=== PATIENT | female | born 1955 | race Caucasian/White ===

== ENCOUNTER 2016-10-14 22:54 | Inpatient (IN) | payer BC, OTHER ==
[2016-10-14] MEDS ORDERED: NS 1000 ML 1,000 ML IV SCH (23:45)
--- NOTE | 2016-10-14 23:49 | DR.GENAD ---
HPI - PCP Primary Care Physician: GLORIA KIM - HPI Comment HPI Comment: PATIENT SAID HER CALL HER AT HOME AND TOLD HER TO COME TO ED. SHE HAS COPD ANDIS HAVING INCREASING SOB. SHE IS WEAK AND HAVE CHEST TIGHTNESS, COUGHING BUT NO FEVER. - Complaint/Symptoms Chief Complaint Doctors Comments: PATIENT HAVE ABNORMAL LABDS AND ABG DONE TODAY. HERE TO EVALUATE. Chief Complaint:: HAD LABS DONE TODAY, DOCTOR CALLED PATIENT AND TOLD THEM TO COME TO THE NEAREST ER. - Nurses notes reviewed Nurses Notes Review: Yes - Source History Provided: Patient, Significant Other - Mode of Arrival Mode of Arrival: Ambulatory - Timing Onset of Chief Complaint: 10/14/16 Came on: Suddenly - Duration Duration: Constant Duration: Days - Severity Severity: Moderate PMH - PMH Past Medical History: Yes Past Medical History: Arthritis, CHF, COPD, Coronary Artery Disease, Diabetes, GERD, Gout, Hypertension, [place] Past Surgical History: Yes Surgical History: Angioplasty/Stents, , Cholecystectomy, Hysterectomy - Family History History of Family Medical Conditions: Yes Family Medical History: Coronary Artery Disease, Heart Failure, Hypertension - Social History Type of Tobacco Use: None Alcohol Use: None Do you use any recreational Drugs:: No Lives With: Spouse Lives Where: Home - infectious screening Have you traveled outside the country in the last 6 months?: No Isolation: Standard ROS - Review of Systems Constitutional: Weakness, Fatigue, Loss of Appetite. negative: Chills, Fever Eyes: No Symptoms Reported. negative: Eye Pain, Discharge ENTM: Nose Congestion. negative: Ear Pain, Nose Discharge, Throat Pain Respiratoy: Productive Cough, Non-Productive Cough, Short of Breath, Wheezing Cardiovascular: Chest Pain, Edema. negative: Palpitations Gastrointestinal/Abdominal: Nausea. negative: Abdominal Pain, Constipation, Vomiting Genitourinary: Other (INCREASE URINE OUTPUT DUE TO LASIX.). negative: Dysuria, Frequency, Hematuria Neurological: Weakness, Dizziness. negative: Headache Musculoskeletal: Joint Pain, Muscle Pain Integumentary: Change in Color Hematologic/Lymphatic: Easy Bruising Endocrine: Increased Urine (DUE TO LASIX.) All Other Systems: Reviewed and Negative PE - Vital Signs Vitals: Temperature 97.6 F Pulse Rate 65 Respiratory Rate 16 Blood Pressure [Left Arm] 102/51 Blood Pressure [Right Arm] 99/47 Blood Pressure 142/66 - General Limitations: No Limitations General Appearance: Alert - Head Head Exam: Normal Inspection - Eyes Eye exam: Normal Appearance - ENT ENT Exam: Normal External Ear Exam External Ear Exam: Normal External Inspection TM/Canal Exam: Bilateral Normal Nose Exam: Normal Nose Exam Mouth Exam: Normal Inspection Throat Exam: Normal Inspection - Neck Neck Exam: Trachea Midline. negative: Tenderness, Meningismus, Lymphadenopathy - Chest Chest Inspection: Symmetric Chest Wall Rise - Respiratory Respiratory Exam: Normal Lung Sounds Bilat, Respiratory Distress Respiratory Exam: Bilateral Wheezing, Bilateral Rhonchi, Lower Wheezing, Lower Rhonchi - Cardiovascular Cardiovascular Exam: Regular Rate, Normal Rhythm, Normal Heart Sounds - Abdominal Exam Abdominal Exam: Normal Bowel Sounds, Soft. negative: Tenderness - Extremities Extremities Exam: Normal Inspection, Full ROM, Edema - Back Back Exam: Paraspinal Tenderness - Neurologic Neurological Exam: Alert, Oriented X3 - Psychiatric Psychiatric Exam: Normal Affect, Normal Mood - Skin Skin Exam: Erythema MDM - Additional Information Additional Information Obtained From: Family - Differential Diagnosis Differential Diagnosis: GENERALIZE WEAKNESS, HYPONATREMIA, HYPOKALEMIA, COPD EXACERBATION Course - Treatment Treatment: SEE ORDER, - Consultation Consultation Comments: DISCUSS PATIENT WITH DR. MARTINS. HE WILL ADMIT PATIENT. - Education/Counseling Education/Counseling: Patient, Family, Education Educated On: Diagnosis ROR - Labs Reviewed Laboratory Results Reviewed?: Yes Result Diagrams: 10/14/16 23:46 Laboratory: Sodium 125 mmol/L (136-145) L* 10/14/16 23:46 Corrected Sodium 126 mmol/L (136-145) L 10/14/16 23:46 Potassium 2.7 mmol/L (3.5-5.1) L* 10/14/16 23:46 Chloride 83 mmol/L (98-107) L 10/14/16 23:46 Carbon Dioxide 35.2 mmol/L (21-32) H 10/14/16 23:46 BUN 55 mg/dL (7-18) H 10/14/16 23:46 Creatinine 1.92 mg/dL (0.55-1.02) H 10/14/16 23:46 Est GFR (MDRD) Af Amer 34 (>60) L 10/14/16 23:46 Est GFR (MDRD) Non-Af 28 (>60) L 10/14/16 23:46 Glucose 130 mg/dL (65-99) H 10/14/16 23:46 Calcium 8.7 mg/dL (8.5-10.1) 10/14/16 23:46 Corrected Calcium TNP 10/14/16 23:46 Total Bilirubin 0.50 mg/dL (0.2-1.0) 10/14/16 23:46 AST 52 Units/L (15-37) H 10/14/16 23:46 ALT 30 Units/L (12-78) 10/14/16 23:46 Alkaline Phosphatase 90 Units/L (46-116) 10/14/16 23:46 Total Protein 7.9 g/dL (6.4-8.2) 10/14/16 23:46 Albumin 3.7 g/dL (3.4-5.0) 10/14/16 23:46 Globulin 4.2 g/dL (2.5-4.5) 10/14/16 23:46 Albumin/Globulin Ratio 0.9 Ratio (1.1-2.1) L 10/14/16 23:46 Specimen Type Clean catch urine 10/15/16 00:04 Urine Color Yellow (YELLOW) 10/15/16 00:04 Urine Appearance Clear (CLEAR) 10/15/16 00:04 Urine pH 7.0 (5.0 - 8.0) 10/15/16 00:04 Ur Specific [place] 1.010 (1.000-1.030) 10/15/16 00:04 Urine Protein Negative (NEGATIVE) 10/15/16 00:04 Urine Glucose (UA) Negative (NEGATIVE) 10/15/16 00:04 Urine Ketones Negative (NEGATIVE) 10/15/16 00:04 Urine Occult Blood Negative (NEGATIVE) 10/15/16 00:04 Urine Nitrite Negative (NEGATIVE) 10/15/16 00:04 Urine Bilirubin Negative (NEGATIVE) 10/15/16 00:04 Urine Urobilinogen Normal (NORMAL) 10/15/16 00:04 Ur Leukocyte Esterase Negative (NEGATIVE) 10/15/16 00:04 Urine RBC None seen /HPF (NEGATIVE) 10/15/16 00:04 Urine WBC None seen /HPF (NEGATIVE) 10/15/16 00:04 Ur Squamous Epith Cells Rare /HPF (NEGATIVE) 10/15/16 00:04 Urine Bacteria Negative /HPF (NEGATIVE) 10/15/16 00:04 Ur Culture Indicated? No/not indicated 10/15/16 00:04 - XRAY XRAY Interpreted by: Radiologist XRAY Findings: REPORT DISCUSS WITH PATIENT AND FAMILY. - EKG Rhythm: NSR (EKG NOTED.) - Diagnosis Discharge Problem: Hyponatremia, Hypokalemia, COPD with exacerbation - Discharge Plan Condition: Stable - Follow ups/Referrals - Instructions
[2016-10-14] MEDS ORDERED: NS 1000 ML 1,000 ML ONE (23:51)
[2016-10-15 00:02] LABS: BLOOD UREA NITROGEN 55 mg/dL (7-18); CALCIUM 8.7 mg/dL (8.5-10.1); CARBON DIOXIDE 35.2 mmol/L (21-32); CHLORIDE 83 mmol/L (98-107); COR NA(FOR HYPERGLY) 126 mmol/L (136-145); CREATININE 1.92 mg/dL (0.55-1.02); GLUCOSE 130 mg/dL (65-99); eGFR BLACK RACES 34 (>60); eGFR NON BLACK RACES 28 (>60)
[2016-10-15 00:06] LABS: ALANINE AMINOTRANSFERASE 30 Units/L (12-78); ALBUMIN 3.7 g/dL (3.4-5.0); ALKALINE PHOSPHATASE 90 Units/L (46-116); ASPARTATE AMINO TRANSFERASE 52 Units/L (15-37); TOTAL PROTEIN 7.9 g/dL (6.4-8.2)
[2016-10-15 00:07] LABS: SODIUM 125 mmol/L (136-145)
[2016-10-15 00:22] LABS: BILIRUBIN,URINE NEGATIVE (NEGATIVE); BLOOD/HEMOGLOBIN,URINE NEGATIVE (NEGATIVE); GLUCOSE, URINE NEGATIVE (NEGATIVE); KETONES,URINE NEGATIVE (NEGATIVE); LEUKOCYTE ESTERASE ,URINE NEGATIVE (NEGATIVE); NITRITES,URINE NEGATIVE (NEGATIVE); PROTEIN,URINE NEGATIVE (NEGATIVE); UROBILINOGEN,URINE NORMAL (NORMAL)
[2016-10-15 00:36] LABS: APPEARANCE,URINE CLEAR (CLEAR); BACTERIA,URINE NEGATIVE /HPF (NEGATIVE); COLOR,URINE YELLOW (YELLOW); RBC,URINE NONE SEEN /HPF (NEGATIVE); SQUAMOUS EPITHELIAL CELL,UR RARE /HPF (NEGATIVE)
[2016-10-15] MEDS ORDERED: POTASSIUM CHLORIDE LIQ 20 MEQ UDC PO ONE (01:16)
[2016-10-15] MEDS ORDERED: POTASSIUM CHLORIDE LIQ 20 MEQ UDC ONE (01:22)
[2016-10-15 01:24] LABS: B-TYPE NATRIURETIC PEPTIDE 66.7 pg/mL (0-79)
--- NOTE | 2016-10-15 01:40 | RAD ---
Chest, one view Indication: Chest pain. Comparison: 10/16/2014 Findings: Mild cardiac silhouette enlargement is unchanged. There is mild pulmonary vascular congest ion, without evidence for overt edema. No dense infiltrates or large effusion identified. There is s table positioning of the left subclavian Port-A-Cath. Impression: Mild cardiomegaly without acute chest process. Reported By:
[2016-10-15 01:41] LABS: CKMB % 2.1 % (<4); CREATINE KINASE 657 Units/L (26-192); TROPONIN I < 0.02 ng/mL (0-1.5)
[2016-10-15 01:43] LABS: CREATINE KINASE MB 13.9 ng/mL (0-4.0)
[2016-10-15] MEDS ORDERED: NS + KCL 40 MEQ/L 1,000 ML IV SCH (02:00)
[2016-10-15 04:23] VITALS: BMI 43.7
[2016-10-15] MEDS: DUONEB 0.5 MG/3 MG NEB SCH ×3 (04:27→13:28)
[2016-10-15] MEDS ORDERED: LEVAQUIN PREMIX IV 500 MG 500 MG/100 ML BAG IV ONE (06:00)
[2016-10-15 06:55] LABS: ALANINE AMINOTRANSFERASE 29 Units/L (12-78); ALBUMIN 3.5 g/dL (3.4-5.0); ALKALINE PHOSPHATASE 82 Units/L (46-116); ASPARTATE AMINO TRANSFERASE 47 Units/L (15-37); BASOPHILS % (AUTO) 0.6 % (0.2-1.0); BLOOD UREA NITROGEN 57 mg/dL (7-18); CALCIUM 8.5 mg/dL (8.5-10.1); CARBON DIOXIDE 34.5 mmol/L (21-32); CHLORIDE 85 mmol/L (98-107); COR NA(FOR HYPERGLY) 127 mmol/L (136-145); CREATININE 2.03 mg/dL (0.55-1.02); EOSINOPHILS # (AUTO) 0.1 x10^3/uL (0.0-0.2); EOSINOPHILS % (AUTO) 2.7 % (0.9-2.9); GLUCOSE 139 mg/dL (65-99); HEMATOCRIT 29.5 % (36.0-47.0); HEMOGLOBIN 10.2 g/dL (12.0-16.0); LYMPHOCYTES # (AUTO) 1.2 X10^3/uL (1.3-2.9); LYMPHOCYTES % (AUTO) 21.7 % (21.0-51.0); MAGNESIUM 1.9 mg/dL (1.7-2.9); MEAN CORPUSCULAR HEMOGLOBIN 31.7 pg (27.0-34.0); MEAN CORPUSCULAR HGB CONC 34.5 g/dL (33.0-35.0); MEAN CORPUSCULAR VOLUME 91.9 fL (80.0-100.0); MEAN PLATELET VOLUME 7.1 fL (7.4-11.0); MONOCYTES # (AUTO) 0.6 x10^3/uL (0.3-0.8); MONOCYTES % (AUTO) 11.2 % (0.0-13.0); NEUTROPHILS # (AUTO) 3.4 x10^3/uL (2.2-4.8); NEUTROPHILS % (AUTO) 63.8 % (42.0-75.0); PLATELET COUNT 146 X10^3/uL (150.0-450.0); RED BLOOD COUNT 3.21 X10^6/uL (3.5-5.4); RED CELL DISTRIBUTION WIDTH 15.6 % (11.6-16.5); SODIUM 126 mmol/L (136-145); TOTAL PROTEIN 7.4 g/dL (6.4-8.2); WHITE BLOOD COUNT 5.4 X10^3/uL (3.6-10.0); eGFR BLACK RACES 32 (>60); eGFR NON BLACK RACES 27 (>60)
[2016-10-15 07:26] LABS: CKMB % 2.1 % (<4); TROPONIN I 0.02 ng/mL (0-1.5)
[2016-10-15 07:36] LABS: CREATINE KINASE MB 9.5 ng/mL (0-4.0)
[2016-10-15] MEDS ORDERED: ESTRACE PO SCH (10:00)
[2016-10-15] MEDS ORDERED: CYMBALTA PO SCH (10:00)
[2016-10-15] MEDS ORDERED: LASIX PO SCH (10:00)
[2016-10-15] MEDS ORDERED: [UNRECOGNIZED DRUG - OTHER] PO SCH (10:00)
[2016-10-15] MEDS ORDERED: [UNRECOGNIZED DRUG - OTHER] PO SCH (10:00)
[2016-10-15] MEDS ORDERED: [UNRECOGNIZED DRUG - OTHER] PO SCH (10:00)
[2016-10-15] MEDS ORDERED: NEURONTIN TAB 600 MG PO SCH (10:00)
[2016-10-15] MEDS ORDERED: ZYLOPRIM PO SCH (10:00)
[2016-10-15] MEDS ORDERED: ABILIFY PO SCH (10:00)
[2016-10-15] MEDS ORDERED: MAG-OX TAB PO SCH (10:00)
[2016-10-15] MEDS ORDERED: ZANTAC PO SCH (10:00)
[2016-10-15] MEDS ORDERED: IMDUR PO SCH (10:00)
[2016-10-15] MEDS ORDERED: PLAVIX PO SCH (10:00)
[2016-10-15] MEDS: REQUIP PO SCH ×2 (10:32→12:59)
[2016-10-15] MEDS: NORCO 10/325 TAB PO SCH ×3 (10:33→12:58)
[2016-10-15] MEDS ORDERED: VASOTEC TAB 5 MG PO SCH (11:00)
[2016-10-15] MEDS ORDERED: TOPAMAX TAB 100 MG PO SCH (11:00)
[2016-10-15 12:50] LABS: CREATINE KINASE 499 Units/L (26-192); TROPONIN I < 0.02 ng/mL (0-1.5)
[2016-10-15 13:03] LABS: CREATINE KINASE MB 10.1 ng/mL (0-4.0)
[2016-10-15 15:06] VITALS: BP 90/74
[2016-10-15] MEDS ORDERED: SNACK - Diabetic Appropriate PO SCH (20:00)
[2016-10-15] MEDS ORDERED: [UNRECOGNIZED DRUG - OTHER] PO SCH (21:00)
[2016-10-15] MEDS ORDERED: ZOCOR TAB 20 MG PO SCH (21:00)
[2016-10-15] MEDS ORDERED: ZETIA TAB 10 MG PO SCH (21:00)
[2016-10-15] MEDS ORDERED: RESTORIL CAP 30 MG PO SCH (21:00)
[2016-10-15] MEDS ORDERED: TOPROL XL PO SCH (21:00)
[2016-10-15] MEDS ORDERED: MICRO K EXTEN CAP 10 MEQ PO SCH (21:00)
[2016-10-15] MEDS ORDERED: M.S. CONTIN 30 MG EXTENDED RELEASE PO SCH (21:00)
[2016-10-15] MEDS ORDERED: LEVEMIR SC SCH (21:00)
[2016-10-16] MEDS ORDERED: LEVAQUIN PREMIX IV 250 MG 250 MG/50 ML BAG IV SCH (09:00)
--- NOTE | 2016-10-16 13:29 | DR.CARTERS ---
Short Stay Summary - Short Stay Summary for: Short Stay Summary for Date of:: 10/15/16 - Admission Date Date of Admission: 10/14/16 - Discharge Date Discharge Date: 10/15/16 - Admission Diagnoses (1) COPD with exacerbation Status: Acute (2) Hypokalemia Status: Acute (3) Hyponatremia Status: Acute (4) CHF (congestive heart failure) Status: Chronic (5) CKD (chronic kidney disease) Status: Chronic (6) Coronary arteriosclerosis Status: Chronic (7) Diabetes mellitus, type II Status: Chronic (8) GERD (gastroesophageal reflux disease) Status: Chronic (9) Hyperlipidemia Status: Chronic - Hospital Course Hospital Course: patient is a 61-year-old white female who was admitted from the emergency room PATIENT SAID HER DR. CALL HER AT HOME AND TOLD HER TO COME TO ED. PATIENT HAVE ABNORMAL LABS AND ABG DONE TODAY. HERE TO EVALUATE. SHE HAS COPD AND IS HAVING INCREASING SOB. SHE IS WEAK AND HAVE CHEST TIGHTNESS , COUGHING BUT NO FEVER. patient has a past medical history of COPD and end- stage renal disease. Patient is followed by Dr. Holtephrologist. Patient presented to the ER as instructed by her primary care provider for IV hydration and treatment for electrolyte imbalance. Patient's potassium on admission was 2.7. After treatment and hydration patient's potassium stabilized at 3.6. Patient did have increased shortness of breath, history of COPD. Patient's chest x-ray was stable without acute findings. Patient was treated with respiratory therapy and condition significantly improved the following a.m. Patient states she has a area sales manager that she will see on Wednesday as well as her drywall hanger helper she is to follow-up with all Wednesday. Patient requests to go home patient's renal function continues to be elevated but within baseline. Patient was instructed to hold her Lasix per drywall hanger helper which she has failed to do. Patient instructed to hold Lasix until she follows up with Dr. Mcneil in addition on Wednesday. Patient's condition was improved overall and she denied any chest pain since admission. Patient's respiratory status was stable and she requested to go home. Patient allowed to discharge home to resume home meds other than Lasix and increased breathing treatments to 4 times a day. Patient and family both instructed to return to emergency room if condition changed or worsened unexpectedly patient and family verbalized understanding and discharged home per private vehicle. Patient's condition was stable and improved on discharge P - Discharge Medications Discharge Medications: Albuterol Neb 2.5MG/ 3Ml [ALBUTEROL NEB 2.5MG/ 3ML *] 1 nebule INH Q4H PRN #90 nebule 10/15/16 [Rx] Ropinirole HCl [REQUIP 0.25 MG *] 0.25 mg PO TID 10/15/16 [History] - Discharge Plan Disposition: 01 HOME, SELF-CARE Condition: Stable Prescriptions: Albuterol Neb 2.5MG/ 3Ml [ALBUTEROL NEB 2.5MG/ 3ML *] 1 nebule INH Q4H PRN #90 nebule PRN Reason: Wheezing - Follow up/Referrals Follow up/Referrals: SAIRA KIM [Nurse Practitioner] - 1 WEEK JEANNIE SALAZAR [REFERRING] - 10/20/16 (As scheduled) - Instructions Instructions: Type 2 Diabetes Mellitus, Adult, Muscle Cramps and Spasms, Easy- to-Read, Shortness of Breath, [id number], Hyponatremia, [id number]-Mlxo, Hypokalemia, Albuterol inhalation aerosol, Chronic Obstructive Pulmonary Disease , Vgpj-bj-Imtg, Sodium (Na) Test, Dehydration, Adult, Wzpo-zo-Uysf, Heart Failure, Vbjt-im-[id number], Chest Pain Observation Additional Instructions: f/u with pcp in one week see dr salazar on wednesday as scheduled pt to continue hold lasix rx albuterol sent to pharmacy Forms: Patient Portal
== END 2016-10-15 16:15 | disposition home or self-care (01) | DRG 190 ==
LOC: ER 22:54 → ICU 10-15 03:21
PROVIDERS: ADMIT Internal Medicine; ATTEND Internal Medicine
DX: J44.1 Chronic obstructive pulmonary disease with (acute) exacerbation (principal); E87.1 Hypo-osmolality and hyponatremia; E87.6 Hypokalemia; R06.02 Shortness of breath; I25.10 Atherosclerotic heart disease of native coronary artery without angina pectoris; K21.9 Gastro-esophageal reflux disease without esophagitis; I12.0 Hypertensive chronic kidney disease with stage 5 chronic kidney disease or end stage renal disease; N18.6 End stage renal disease; M13.89 Other specified arthritis, multiple sites; R07.89 Other chest pain; I50.9 Heart failure, unspecified; E11.65 Type 2 diabetes mellitus with hyperglycemia; E78.2 Mixed hyperlipidemia; R26.89 Other abnormalities of gait and mobility
CPT/HCPCS: 36415; 36591; 51702; 71010; 80053; 81001; 82550; 82553; 83735; 83880; 84132; 84484; 85025; 85610; 85730; 93005; 93010; 94640; 96365; 96367; 99284; 99285; A4216; A4222; J1956; J7620

== ENCOUNTER → 2016-10-14 | Outpatient (CLI) | payer BC, OTHER ==
[2015-12-01 21:05] VITALS: BP 102/51
[2016-10-14 15:07] LABS: ALANINE AMINOTRANSFERASE 31 Units/L (12-78); ALBUMIN 3.8 g/dL (3.4-5.0); ALKALINE PHOSPHATASE 90 Units/L (46-116); ASPARTATE AMINO TRANSFERASE 51 Units/L (15-37); BILIRUBIN,DIRECT 0.17 mg/dL (0-0.2); BLOOD UREA NITROGEN 57 mg/dL (7-18); CARBON DIOXIDE 37.4 mmol/L (21-32); CHLORIDE 81 mmol/L (98-107); CREATININE 2.01 mg/dL (0.55-1.02); GLUCOSE 78 mg/dL (65-99); eGFR BLACK RACES 33 (>60); eGFR NON BLACK RACES 27 (>60)
[2016-10-14 15:08] LABS: BILIRUBIN,URINE NEGATIVE (NEGATIVE); BLOOD/HEMOGLOBIN,URINE NEGATIVE (NEGATIVE); GLUCOSE, URINE NEGATIVE (NEGATIVE); KETONES,URINE NEGATIVE (NEGATIVE); LEUKOCYTE ESTERASE ,URINE NEGATIVE (NEGATIVE); NITRITES,URINE NEGATIVE (NEGATIVE); PROTEIN,URINE NEGATIVE (NEGATIVE); UROBILINOGEN,URINE NORMAL (NORMAL)
[2016-10-14 15:13] LABS: SODIUM 123 mmol/L (136-145)
[2016-10-14 15:26] LABS: APPEARANCE,URINE CLEAR (CLEAR); COLOR,URINE YELLOW (YELLOW)
[2016-10-14 15:31] LABS: RBC,URINE NEGATIVE /HPF (NEGATIVE); SQUAMOUS EPITHELIAL CELL,UR MODERATE /HPF (NEGATIVE)
[2016-10-14 15:32] LABS: BACTERIA,URINE NEGATIVE /HPF (NEGATIVE)
[2016-10-14 16:51] LABS: ABG BASE EXCESS 16.2 mmol/L (-2.0-2.0)
[2016-10-14 17:03] LABS: ABG HCO3 42.4 mmol/L (22-26)
== END ==
LOC: LAB 14:19
PROVIDERS: ATTEND Internal Medicine
DX: R41.82 Altered mental status, unspecified (principal)
CPT/HCPCS: 36415; 36600; 80069; 80076; 81001; 82140; 82803

== ENCOUNTER → 2016-10-19 | Outpatient (CLI) | payer BC, OTHER ==
[2016-10-15 15:06] VITALS: BP 90/74
[2016-10-19 17:23] LABS: ALBUMIN 3.6 g/dL (3.4-5.0); BLOOD UREA NITROGEN 56 mg/dL (7-18); CALCIUM 8.5 mg/dL (8.5-10.1); CARBON DIOXIDE 29.2 mmol/L (21-32); CHLORIDE 90 mmol/L (98-107); COR NA(FOR HYPERGLY) 131 mmol/L (136-145); GLUCOSE 153 mg/dL (65-99); PHOSPHORUS 4.6 mg/dL (2.6-4.7); SODIUM 130 mmol/L (136-145); eGFR BLACK RACES 29 (>60); eGFR NON BLACK RACES 24 (>60)
== END ==
LOC: LAB 16:28
PROVIDERS: ATTEND Internal Medicine
DX: E87.6 Hypokalemia (principal); E87.1 Hypo-osmolality and hyponatremia
CPT/HCPCS: 36415; 80069

== ENCOUNTER → 2016-11-03 | Outpatient (CLI) | payer SELFPAY ==
[2016-10-15 15:06] VITALS: BP 90/74
[2016-11-03 17:15] LABS: BLOOD UREA NITROGEN 51 mg/dL (7-18); CALCIUM 8.8 mg/dL (8.5-10.1); CARBON DIOXIDE 31.8 mmol/L (21-32); CHLORIDE 81 mmol/L (98-107); COR NA(FOR HYPERGLY) 122 mmol/L (136-145); CREATININE 1.57 mg/dL (0.55-1.02); GLUCOSE 157 mg/dL (65-99); eGFR BLACK RACES 43 (>60); eGFR NON BLACK RACES 36 (>60)
[2016-11-03 17:19] LABS: ALBUMIN 3.8 g/dL (3.4-5.0); PHOSPHORUS 3.5 mg/dL (2.6-4.7)
[2016-11-03 17:31] LABS: SODIUM 121 mmol/L (136-145)
== END | disposition home or self-care (01) | DRG 641 ==
LOC: LAB 16:45
PROVIDERS: ATTEND Internal Medicine
DX: E87.1 Hypo-osmolality and hyponatremia (principal); E87.6 Hypokalemia; N18.4 Chronic kidney disease, stage 4 (severe)
CPT/HCPCS: 36415; 80069

== ENCOUNTER → 2016-11-09 | Outpatient (CLI) | payer BC, OTHER ==
[2016-10-15 15:06] VITALS: BP 90/74
[2016-11-09 17:37] LABS: BASOPHILS # (AUTO) 0.1 X10^3/uL (0.0-0.1); BASOPHILS % (AUTO) 1.9 % (0.2-1.0); EOSINOPHILS # (AUTO) 0.1 x10^3/uL (0.0-0.2); EOSINOPHILS % (AUTO) 2.3 % (0.9-2.9); HEMOGLOBIN 11.6 g/dL (12.0-16.0); LYMPHOCYTES # (AUTO) 1.5 X10^3/uL (1.3-2.9); LYMPHOCYTES % (AUTO) 26.1 % (21.0-51.0); MEAN CORPUSCULAR HEMOGLOBIN 31.2 pg (27.0-34.0); MEAN CORPUSCULAR VOLUME 91.6 fL (80.0-100.0); MEAN PLATELET VOLUME 6.9 fL (7.4-11.0); MONOCYTES # (AUTO) 0.7 x10^3/uL (0.3-0.8); MONOCYTES % (AUTO) 12.5 % (0.0-13.0); NEUTROPHILS # (AUTO) 3.3 x10^3/uL (2.2-4.8); NEUTROPHILS % (AUTO) 57.2 % (42.0-75.0); PLATELET COUNT 177 X10^3/uL (150.0-450.0); RED BLOOD COUNT 3.71 X10^6/uL (3.5-5.4); RED CELL DISTRIBUTION WIDTH 15.8 % (11.6-16.5); WHITE BLOOD COUNT 5.8 X10^3/uL (3.6-10.0)
[2016-11-09 17:51] LABS: ALBUMIN 3.7 g/dL (3.4-5.0); BLOOD UREA NITROGEN 45 mg/dL (7-18); CALCIUM 9.2 mg/dL (8.5-10.1); CARBON DIOXIDE 33.2 mmol/L (21-32); CHLORIDE 88 mmol/L (98-107); CREATININE 1.54 mg/dL (0.55-1.02); GLUCOSE 110 mg/dL (65-99); SODIUM 129 mmol/L (136-145); eGFR BLACK RACES 44 (>60); eGFR NON BLACK RACES 37 (>60)
== END | disposition home or self-care (01) | DRG 683 ==
LOC: LAB 17:13
PROVIDERS: ATTEND Internal Medicine
DX: N17.8 Other acute kidney failure (principal); E87.1 Hypo-osmolality and hyponatremia; N18.3 Chronic kidney disease, stage 3 (moderate)
CPT/HCPCS: 36415; 80069; 85025

== ENCOUNTER → 2016-12-08 | Outpatient (CLI) | payer BC, OTHER ==
--- NOTE | 2016-12-08 11:40 | RAD ---
HISTORY: Shortness of breath. Study: PA and lateral chest. Comparison: Chest x-ray dated October 15, 2016. Findings: The trachea is midline. The cardiac silhouette is mildly enlarged but unchanged. Stable appearance of a left chest Port-A-Cath and a thoracic nerve stimulator. No obvious focal consolidation, pleura l effusion, or pneumothorax. The bony thorax appears unchanged. IMPRESSION: 1. No acute cardiopulmonary disease. Reported By:
--- NOTE | 2016-12-08 12:23 | RAD ---
HISTORY: Pain Study: Three views right shoulder Comparison: None Findings: There is moderate AC joint and mild glenohumeral joint DJD. No destructive osseous lesions are seen . No acute cortical disruption or dislocation can be identified. The visualized portions of the sc apula are unremarkable. A left-sided Port-A-Cath and spinal stimulation device are noted. IMPRESSION: Mild to moderate DJD without acute bony radiographic abnormality. Reported By:
== END ==
LOC: RAD 10:47
PROVIDERS: ATTEND Nurse Practitioner Family
DX: Z00.00 Encounter for general adult medical examination without abnormal findings (principal); Z12.31 Encounter for screening mammogram for malignant neoplasm of breast; M25.511 Pain in right shoulder; R06.02 Shortness of breath
CPT/HCPCS: 71020; 73030; 77067

== ENCOUNTER → 2017-01-05 | Outpatient (CLI) | payer BC, OTHER ==
--- NOTE | 2017-01-05 17:59 | RAD ---
HISTORY: Thoracic and low back pain. Study: Multiple views of the thoracic and lumbar spine. Comparison: Thoracic spine series dated April 15, 2012. Findings: 12 rib-bearing thoracic vertebra and 4 lwm-hjl-egeekgb lumbar vertebra. Sacralization of the L5 vert ebral body. No acute fracture or listhesis. Multilevel facet arthrosis and small anterior disc osteo phyte complexes. The vertebral body heights and disc spaces are otherwise maintained. Stable appeara nce of a left chest Port-A-Cath. Interval replacement of a thoracic nerve stimulator that appears in tact. The visualized cardiac silhouette and lungs appear unchanged. Nonobstructive bowel gas pattern . Vascular calcifications are seen. The SI joints appear normal. IMPRESSION: Chronic findings as above. Reported By:
--- NOTE | 2017-01-05 17:59 | RAD ---
HISTORY: Thoracic and low back pain. Study: Multiple views of the thoracic and lumbar spine. Comparison: Thoracic spine series dated April 15, 2012. Findings: 12 rib-bearing thoracic vertebra and 4 wjb-ych-wbiugwm lumbar vertebra. Sacralization of the L5 vert ebral body. No acute fracture or listhesis. Multilevel facet arthrosis and small anterior disc osteo phyte complexes. The vertebral body heights and disc spaces are otherwise maintained. Stable appeara nce of a left chest Port-A-Cath. Interval replacement of a thoracic nerve stimulator that appears in tact. The visualized cardiac silhouette and lungs appear unchanged. Nonobstructive bowel gas pattern . Vascular calcifications are seen. The SI joints appear normal. IMPRESSION: Chronic findings as above. Reported By:
--- NOTE | 2017-01-05 18:03 | RAD ---
HISTORY: Bilateral hip pain. Study: Three views of the bilateral hips. Comparison: None. Findings: Mild osteoarthritis of the bilateral hips with associated subchondral cystic changes within the acet abulum. 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 No acute cortical disruption or disl ocation can be identified. No significant soft tissue swelling or injury can be seen. IMPRESSION: Chronic findings as above. Reported By:
--- NOTE | 2017-01-05 18:58 | RAD ---
HISTORY: Pain Study: C-spine series Comparison: 11/04/2011 Findings: The C7 and T1 vertebra are partially obscured on the lateral view. There is moderate disc space narr owing throughout the visualized lower cervical spine with prominent osteophytes inferiorly which are unchanged. No obvious fracture or subluxation is seen in the visualized vertebra. The prevertebral soft tissues are normal. The atlantoaxial joint is normal. Impression: Partial obscuration of the C7 and T1 vertebra on the lateral view due to overlying artifact . Recomm end clinical followup of the area and obtaining a swimmer's view or CT scan, if indicated to further evaluate the area . Moderately severe degenerative disk changes throughout the lower cervical spine which is unchanged w ith no obvious acute abnormality seen in the visualized cervical vertebra. Reported By:
== END ==
LOC: RAD 16:33
PROVIDERS: ATTEND Nurse Practitioner Family
DX: M54.2 Cervicalgia (principal); M54.6 Pain in thoracic spine; M25.511 Pain in right shoulder; M25.512 Pain in left shoulder; M25.551 Pain in right hip; M25.552 Pain in left hip
CPT/HCPCS: 72040; 72072; 72100; 73030; 73521

== ENCOUNTER → 2017-01-07 | Outpatient (CLI) | payer BC, OTHER ==
--- NOTE | 2017-01-07 17:03 | CT ---
CT head without contrast Indication: Left-sided weakness Technique: Helical CT images of the head were obtained without contrast. Reformatted images in the c oronal and sagittal planes were also generated for review. 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 Mild generalized brain pa renchymal atrophy and mild periventricular white matter microangiopathic disease also appear similar . Kinney-white differentiation otherwise appears maintained. There is no visible acute infarction, int racranial hemorrhage, extra-axial collection, edema or mass effect. The paranasal sinuses and mastoi d air cells appear clear. No acute osseous or soft tissue abnormality seen. Impression: No acute intracranial abnormality. Stable chronic findings as above. Reported By:
--- NOTE | 2017-01-07 18:05 | CT ---
HISTORY: Neck pain. Study: CT cervical spine without contrast Comparison: Cervical spine series dated January 05, 2017. Technique: Multiple axial images of the cervical spine were obtained from the skull base to the thor acic inlet without administration of IV contrast. Sagittal and coronal reformats were performed and reviewed. Dose reduction techniques including Automated Exposure Control (AEC) and adjustment of mA and kV were utilized. Findings: Reversal of the normal cervical lordosis, which may represent positioning versus muscle spasm. No ac [place] fracture or listhesis. Mild/moderate disc space narrowing with associated early endplate scleros is and large anterior disc osteophyte complexes at C4 through C7. No significant spinal canal stenos is or neural foraminal narrowing. Left chest Port-A-Cath. The prevertebral soft tissues are unremark able. Moderate fibrosis of the lung apices. IMPRESSION: Chronic findings as above. Reported By:
== END ==
LOC: RAD 15:09
PROVIDERS: ATTEND Nurse Practitioner Family
DX: Z45.2 Encounter for adjustment and management of vascular access device (principal); Z95.828 Presence of other vascular implants and grafts; R51 Headache; M54.2 Cervicalgia
CPT/HCPCS: 70450; 72125; 99281

== ENCOUNTER 2017-01-24 20:51 | Emergency (ER) | payer BC, OTHER ==
[2017-01-24 21:03] VITALS: BP 152/69; BMI 44.9
--- NOTE | 2017-01-24 21:27 | DR.GENAD ---
HPI - PCP Primary Care Physician: Lawrence - Complaint/Symptoms Chief Complaint Doctors Comments: Spouse reports that patient fell onto her back one week ago, workup negative for fracture. Sustained contusion of left upper back. Today fell againe the wall and slide to to floor. Chief Complaint:: "I fell yesterday on my back and hit my head. Today I felt something running so I put a q-tip on it and there was blood. I have been dizzy this past week before this happened." - Source History Provided: Patient - Mode of Arrival Mode of Arrival: Ambulatory - Timing Onset of Chief Complaint: 01/23/17 PMH - PMH Past Medical History: Yes Past Medical History: Arthritis, CHF, COPD, Coronary Artery Disease, Diabetes, GERD, Gout, Hypertension, [place] Past Surgical History: Yes Surgical History: , CABG/Valve Surgery, Cholecystectomy, Hysterectomy - Family History History of Family Medical Conditions: Yes Family Medical History: Heart Failure - Social History Does patient currently use any type of tobacco product: No Have you used tobacco products in the last 12 months: No Type of Tobacco Use: None Does any household member use tobacco: No Alcohol Use: None Do you use any recreational Drugs:: No Lives With: Alone - infectious screening In the last 2 months have you had wt loss of >10#?: YES Have you had fever, night sweats or hemotysis?: No Have you traveled outside the country in the last 6 months?: No Isolation: Standard ROS - Review of Systems Eyes: No Symptoms Reported ENTM: No Symptoms Reported, Ear Discharge (blood proximal 1/2 of external canal left ear; right ear blood proximal 1/3 external canat) Respiratoy: No Symptoms Reported Cardiovascular: No Symptoms Reported Genitourinary: No Symptoms Reported Neurological: No Symptoms Reported Musculoskeletal: No Symptoms Reported Hematologic/Lymphatic: Other (old ecchymosis of left back anterior, ) Endocrine: No Symptoms Reported Psychiatric: No Symptoms Reported All Other Systems: Reviewed and Negative PE - Vital Signs Vitals: Temperature 97.9 F Pulse Rate 77 Respiratory Rate 18 Blood Pressure [Left Arm] 90/74 Blood Pressure [Right Arm] 107/56 Blood Pressure 152/69 O2 Sat by Pulse Oximetry 90 - General General Appearance: Alert, In No Apparent Distress - Head Head Exam: Normal Inspection, Atraumatic - Eyes Eye exam: Normal Appearance, PERRL, EOMI - ENT ENT Exam: Normal Exam External Ear Exam: Normal External Inspection TM/Canal Exam: Bilateral Normal Nose Exam: Normal Nose Exam Mouth Exam: Normal Inspection Throat Exam: Normal Inspection - Neck Neck Exam: Normal Inspection, Full ROM - Chest Chest Inspection: Normal Inspection - Respiratory Respiratory Exam: Normal Lung Sounds Bilat Respiratory Exam: Bilateral Clear to Auscultation - Cardiovascular Cardiovascular Exam: Regular Rate - Abdominal Exam Abdominal Exam: Normal Inspection Abdominal Tenderness: negative: RUQ, RLQ, LUQ, LLQ, Epigastrium, Suprapubic, Diffuse, Mild, Moderate, Severe, Other - Extremities Extremities Exam: Normal Inspection, Full ROM - Back Back Exam: Other (ecchymosis back left posterior lateral ) - Neurologic Neurological Exam: Alert, Oriented X3, CN II-XII Intact - Psychiatric Psychiatric Exam: Normal Affect, Normal Mood - Skin Skin Exam: Warm, Dry, Intact - Diagnosis Discharge Problem: Fall as cause of accidental injury at home as place of occurrence Qualifiers: Encounter type: initial encounter Qualified Code(s): W19.XXXA - Unspecified fall, initial encounter; Y92.009 - Unspecified place in unspecified non- institutional (private) residence as the place of occurrence of the external cause Trauma of ear canal Qualifiers: Encounter type: initial encounter Qualified Code(s): S09.91XA - Unspecified injury of ear, initial encounter - Discharge Plan Condition: Stable - Follow ups/Referrals Follow ups/Referrals: ALEX VICTORIA [Primary Care Provider] - 3 days - Instructions
== END 2017-01-24 21:41 | disposition home or self-care (01) ==
LOC: ER 20:51
DX: S09.91XA Unspecified injury of ear, initial encounter (principal); W19.XXXA Unspecified fall, initial encounter; Y92.009 Unspecified place in unspecified non-institutional (private) residence as the place of occurrence of the external cause
CPT/HCPCS: 99281; 99282

== ENCOUNTER 2017-03-24 13:14 | Emergency (ER) | payer BC, OTHER ==
[2017-03-24 13:19] VITALS: BP 153/63; BMI 45.1
[2017-03-24] MEDS ORDERED: NITROSTAT SL PRN (13:28)
--- NOTE | 2017-03-24 13:43 | DR.GENAD ---
HPI - PCP Primary Care Physician: darrell su - Complaint/Symptoms Chief Complaint Doctors Comments: Patient presents with chest pain radiating to left upper extrdmity. She states that the pain started this morning; but has not gotten better. She has a history of cardiac disease with stents ~10 years ago, she is followed by float builder Dr Marin in [place]. Patient has nigroglycerin spray but forgot to use it. Chief Complaint:: patient stated she has been having indigestion all day and has been short of breath all day and when she got on her scales she gained 2 in 24 hours. - Source History Provided: Patient - Mode of Arrival Mode of Arrival: Ambulatory - Timing Onset of Chief Complaint: 03/24/17 PMH - PMH Past Medical History: Yes Past Medical History: Arthritis, CHF, COPD, Coronary Artery Disease, Diabetes, GERD, Gout, Hypertension, [place] Past Surgical History: Yes Surgical History: , CABG/Valve Surgery, Cholecystectomy, Hysterectomy - Family History History of Family Medical Conditions: Yes Family Medical History: Heart Failure - Social History Does patient currently use any type of tobacco product: No Have you used tobacco products in the last 12 months: No Type of Tobacco Use: None Does any household member use tobacco: No Alcohol Use: None Do you use any recreational Drugs:: No Lives With: Family - infectious screening In the last 2 months have you had wt loss of >10#?: NO Have you had fever, night sweats or hemotysis?: No Have you traveled outside the country in the last 6 months?: No Isolation: Standard ROS - Review of Systems Constitutional: Diaphoresis Eyes: No Symptoms Reported, See HPI ENTM: No Symptoms Reported Respiratoy: No Symptoms Reported Cardiovascular: No Symptoms Reported Gastrointestinal/Abdominal: No Symptoms Reported Genitourinary: No Symptoms Reported Neurological: No Symptoms Reported Musculoskeletal: No Symptoms Reported Integumentary: No Symptoms Reported Hematologic/Lymphatic: No Symptoms Reported Endocrine: No Symptoms Reported, Increased Hunger All Other Systems: Reviewed and Negative PE - Vital Signs Vitals: Pulse Rate 75 Respiratory Rate 16 Blood Pressure [Left Arm] 90/74 Blood Pressure [Right Arm] 107/56 Blood Pressure 153/63 O2 Sat by Pulse Oximetry 98 - General Limitations: No Limitations General Appearance: Alert, In No Apparent Distress - Head Head Exam: Normal Inspection, Atraumatic - Eyes Eye exam: Normal Appearance, PERRL, EOMI - ENT ENT Exam: Normal Exam External Ear Exam: Normal External Inspection TM/Canal Exam: Bilateral Normal Nose Exam: Normal Nose Exam Mouth Exam: Normal Inspection Throat Exam: Normal Inspection - Neck Neck Exam: Normal Inspection, Full ROM - Chest Chest Inspection: Normal Inspection, Symmetric Chest Wall Rise - Respiratory Respiratory Exam: Normal Lung Sounds Bilat Respiratory Exam: Bilateral Clear to Auscultation - Cardiovascular Cardiovascular Exam: Regular Rate, Normal Rhythm - Abdominal Exam Abdominal Exam: Normal Inspection, Normal Bowel Sounds Abdominal Tenderness: negative: RUQ, RLQ, LUQ, LLQ, Epigastrium, Suprapubic, Diffuse, Mild, Moderate, Severe, Other - Extremities Extremities Exam: Normal Inspection - Back Back Exam: Normal Inspection, Full ROM - Neurologic Neurological Exam: Alert, Oriented X3, CN II-XII Intact - Psychiatric Psychiatric Exam: Normal Affect, Normal Mood, Depressed, Agitated - Skin Skin Exam: Warm, Dry, Intact Course - Reevaluation 1st: Improved ROR - Labs Reviewed Result Diagrams: 03/24/17 13:38 03/24/17 13:38 Laboratory: WBC 5.9 X10^3/uL (3.6-10.0) 03/24/17 13:38 RBC 3.29 X10^6/uL (3.5-5.4) L 03/24/17 13:38 Hgb 10.7 g/dL (12.0-16.0) L 03/24/17 13:38 Hct 31.2 % (36.0-47.0) L 03/24/17 13:38 MCV 94.6 fL (80.0-100.0) 03/24/17 13:38 MCH 32.5 pg (27.0-34.0) 03/24/17 13:38 MCHC 34.4 g/dL (33.0-35.0) 03/24/17 13:38 RDW 15.9 % (11.6-16.5) 03/24/17 13:38 Plt Count 140 X10^3/uL (150.0-450.0) L 03/24/17 13:38 MPV 7.4 fL (7.4-11.0) 03/24/17 13:38 Neut % 66.7 % (42.0-75.0) 03/24/17 13:38 Lymph % 21.7 % (21.0-51.0) 03/24/17 13:38 [place] % 8.9 % (0.0-13.0) 03/24/17 13:38 Eos % 2.1 % (0.9-2.9) 03/24/17 13:38 Baso % 0.6 % (0.2-1.0) 03/24/17 13:38 Neut # 3.9 x10^3/uL (2.2-4.8) 03/24/17 13:38 Lymph # 1.3 X10^3/uL (1.3-2.9) 03/24/17 13:38 [place] # 0.5 x10^3/uL (0.3-0.8) 03/24/17 13:38 Eos # 0.1 x10^3/uL (0.0-0.2) 03/24/17 13:38 Baso # 0.0 X10^3/uL (0.0-0.1) 03/24/17 13:38 Absolute Nucleated RBC 0.0 /100WBC 03/24/17 13:38 INR Target Range - 03/24/17 13:38 INR 0.97 (0.8-1.3) 03/24/17 13:38 PTT 31.2 SECONDS (22.9-36.5) 03/24/17 13:38 PTT Comment - 03/24/17 13:38 Sodium 135 mmol/L (136-145) L 03/24/17 13:38 Corrected Sodium 136 mmol/L (136-145) 03/24/17 13:38 Potassium 4.0 mmol/L (3.5-5.1) 03/24/17 13:38 Chloride 98 mmol/L (98-107) 03/24/17 13:38 Carbon Dioxide 28.5 mmol/L (21-32) 03/24/17 13:38 BUN 48 mg/dL (7-18) H 03/24/17 13:38 Creatinine 1.75 mg/dL (0.55-1.02) H 03/24/17 13:38 Est GFR (MDRD) Af Amer 38 (>60) L 03/24/17 13:38 Est GFR (MDRD) Non-Af 32 (>60) L 03/24/17 13:38 Glucose 132 mg/dL (65-99) H 03/24/17 13:38 Calcium 9.3 mg/dL (8.5-10.1) 03/24/17 13:38 Corrected Calcium 9.9 mg/dL (8.5-10.1) 03/24/17 13:38 Magnesium 1.8 mg/dL (1.7-2.9) 03/24/17 13:38 Total Bilirubin 0.40 mg/dL (0.2-1.0) 03/24/17 13:38 AST 25 Units/L (15-37) 03/24/17 13:38 ALT 29 Units/L (12-78) 03/24/17 13:38 Alkaline Phosphatase 108 Units/L (46-116) 03/24/17 13:38 Creatine Kinase 67 Units/L (26-192) 03/24/17 13:38 CK-MB (CK-2) 1.4 ng/mL (0-4.0) 03/24/17 13:38 CK/CKMB % Calc 2.1 % (<4) 03/24/17 13:38 Troponin I < 0.02 ng/mL (0-1.5) 03/24/17 13:38 Total Protein 7.6 g/dL (6.4-8.2) 03/24/17 13:38 Albumin 3.3 g/dL (3.4-5.0) L 03/24/17 13:38 Globulin 4.3 g/dL (2.5-4.5) 03/24/17 13:38 Albumin/Globulin Ratio 0.8 Ratio (1.1-2.1) L 03/24/17 13:38 - XRAY XRAY Interpreted by: Radiologist (Chest: cardiomegaly without pulmonary congestion) - Diagnosis Discharge Problem: Angina pectoris - Discharge Plan Condition: Stable - Follow ups/Referrals Follow ups/Referrals: NU SU [Primary Care Provider] - 3 days - Instructions
[2017-03-24] MEDS ORDERED: NITROSTAT SL ONE (13:44)
[2017-03-24 13:53] LABS: BASOPHILS % (AUTO) 0.6 % (0.2-1.0); EOSINOPHILS # (AUTO) 0.1 x10^3/uL (0.0-0.2); EOSINOPHILS % (AUTO) 2.1 % (0.9-2.9); HEMATOCRIT 31.2 % (36.0-47.0); HEMOGLOBIN 10.7 g/dL (12.0-16.0); LYMPHOCYTES # (AUTO) 1.3 X10^3/uL (1.3-2.9); LYMPHOCYTES % (AUTO) 21.7 % (21.0-51.0); MEAN CORPUSCULAR HEMOGLOBIN 32.5 pg (27.0-34.0); MEAN CORPUSCULAR HGB CONC 34.4 g/dL (33.0-35.0); MEAN CORPUSCULAR VOLUME 94.6 fL (80.0-100.0); MEAN PLATELET VOLUME 7.4 fL (7.4-11.0); MONOCYTES # (AUTO) 0.5 x10^3/uL (0.3-0.8); MONOCYTES % (AUTO) 8.9 % (0.0-13.0); NEUTROPHILS # (AUTO) 3.9 x10^3/uL (2.2-4.8); NEUTROPHILS % (AUTO) 66.7 % (42.0-75.0); PLATELET COUNT 140 X10^3/uL (150.0-450.0); RED BLOOD COUNT 3.29 X10^6/uL (3.5-5.4); RED CELL DISTRIBUTION WIDTH 15.9 % (11.6-16.5); WHITE BLOOD COUNT 5.9 X10^3/uL (3.6-10.0)
[2017-03-24 14:07] LABS: BLOOD UREA NITROGEN 48 mg/dL (7-18); CALCIUM 9.3 mg/dL (8.5-10.1); CARBON DIOXIDE 28.5 mmol/L (21-32); CHLORIDE 98 mmol/L (98-107); COR NA(FOR HYPERGLY) 136 mmol/L (136-145); CREATININE 1.75 mg/dL (0.55-1.02); SODIUM 135 mmol/L (136-145); TROPONIN I < 0.02 ng/mL (0-1.5); eGFR BLACK RACES 38 (>60); eGFR NON BLACK RACES 32 (>60)
[2017-03-24 14:12] LABS: ALANINE AMINOTRANSFERASE 29 Units/L (12-78); ALBUMIN 3.3 g/dL (3.4-5.0); ALKALINE PHOSPHATASE 108 Units/L (46-116); ASPARTATE AMINO TRANSFERASE 25 Units/L (15-37); CKMB % 2.1 % (<4); COR CA(FOR HYPOALB) 9.9 mg/dL (8.5-10.1); CREATINE KINASE 67 Units/L (26-192); CREATINE KINASE MB 1.4 ng/mL (0-4.0); MAGNESIUM 1.8 mg/dL (1.7-2.9); TOTAL PROTEIN 7.6 g/dL (6.4-8.2)
--- NOTE | 2017-03-24 14:26 | RAD ---
HISTORY: Chest pain. Indigestion. Shortness of breath. Study: Chest one view Comparison: December 08, 2016. Findings: The trachea is midline. The cardiac silhouette is enlarged. A left-sided Port-A-Cath catheter is in place. There is no evidence of consolidation, significant effusion, or pneumothorax. The bony thorax is unremarkable. IMPRESSION: 1. Cardiomegaly. 2. No acute pulmonary abnormality. Reported By:
== END 2017-03-24 15:05 | disposition home or self-care (01) ==
LOC: ER 13:24
DX: I20.9 Angina pectoris, unspecified (principal); I51.7 Cardiomegaly
CPT/HCPCS: 36415; 36591; 71010; 80053; 82550; 82553; 83735; 84484; 85025; 85610; 85730; 93005; 93010; 96365; 96374; 99283

== ENCOUNTER → 2017-03-31 | Outpatient (CLI) | payer BC, OTHER ==
[2017-03-24 13:19] VITALS: BP 153/63
--- NOTE | 2017-04-01 10:50 | RAD ---
HISTORY: Left knee pain. Complete AP and lateral views of the left knee joint. Findings: Examination of the left knee demonstrate no evidence for acute fracture, subluxation, or dislocation. The medial and lateral tibiofemoral compartments demonstrate moderate joint space narrowing and mar ginal osteophyte formation. The findings are compatible with mild degenerative joint disease. The l ateral radiograph fails to demonstrate significant joint effusion. Patellofemoral compartment shows moderate DJD and mild chondromalacia patella. IMPRESSION: [id number] tricompartmental knee joint osteoarthritis, worse medially. Reported By:
--- NOTE | 2017-04-01 10:55 | RAD ---
HISTORY: Right knee pain. Complete AP and lateral view series of the right knee joint. Findings: Examination of the right knee demonstrate no evidence for acute fracture, subluxation, or dislocation . The medial and lateral tibiofemoral compartments demonstrate moderate joint space narrowing and ma rginal osteophyte formation. The findings are compatible with mild degenerative joint disease. The lateral radiograph fails to demonstrate significant joint effusion. Patellofemoral compartment shows moderate DJD and mild chondromalacia patella. IMPRESSION: Abnormal sclerosis seen within the femoral condyles bilaterally and to a lesser degree in the tibial plateau (which is also seen on the left knee joint but to a lesser degree) which can be s een with bony infarctions or chondromalacia related sclerosis. This can be better assessed with MR im aging of the knee joints, as clinically indicated. Moderate tricompartmental knee joint osteoarthritis, worse medially. No acute fracture. Reported By:
== END | disposition home or self-care (01) | DRG 554 ==
LOC: RAD 16:00
PROVIDERS: ATTEND Internal Medicine Rheumatology
DX: M17.0 Bilateral primary osteoarthritis of knee (principal); M17.12 Unilateral primary osteoarthritis, left knee
CPT/HCPCS: 73560

== ENCOUNTER 2017-08-02 18:54 | Emergency (ER) | payer BC, OTHER ==
[2017-08-02 19:15] VITALS: BMI 48.8
--- NOTE | 2017-08-02 20:05 | DR.GENAD ---
HPI - PCP Primary Care Physician: yonny su - HPI Comment HPI Comment: WORSE TODAY. SAW AERONAUTICAL ENGINEERING PROFESSOR TODAY. SENT PATIENT TO ED FOR FURTHER EVALUATION. DENIES FEVER. ARAIZA AND INCREASIND PERIPHERAL EDEMA. TAKES LASIX BUT URINE OUT PUT POOR. - Complaint/Symptoms Chief Complaint Doctors Comments: INCRESING SOB FOR FEW DAYS. Chief Complaint:: pt states" i'm short of breath and i have fluid i need iv lasix" - Nurses notes reviewed Nurses Notes Review: Yes - Source History Provided: Patient - Mode of Arrival Mode of Arrival: Ambulatory - Timing Onset of Chief Complaint: 08/02/17 Came on: Gradually - Duration Duration: Constant Duration: Days - Severity Severity: Moderate PMH - PMH Past Medical History: Yes Past Medical History: Arthritis, CHF, COPD, Coronary Artery Disease, Diabetes, GERD, Gout, Hypertension, [place] Past Surgical History: Yes Surgical History: , CABG/Valve Surgery, Cholecystectomy, Hysterectomy - Family History History of Family Medical Conditions: Yes Family Medical History: Heart Failure - Social History Does any household member use tobacco: No Do you use any recreational Drugs:: No Lives With: Family Lives Where: Home - infectious screening In the last 2 months have you had wt loss of >10#?: NO Have you had fever, night sweats or hemotysis?: No Have you traveled outside the country in the last 6 months?: No Isolation: Standard ROS - Review of Systems Constitutional: Weakness, Fatigue. negative: Chills, Fever Eyes: negative: Eye Pain, Discharge ENTM: negative: Ear Pain, Nose Discharge, Nose Congestion, Throat Pain Respiratoy: Non-Productive Cough, Short of Breath, Wheezing. negative: Hemoptysis Cardiovascular: Edema Gastrointestinal/Abdominal: No Symptoms Reported Genitourinary: No Symptoms Reported Neurological: Weakness Musculoskeletal: Muscle Pain Integumentary: No Symptoms Reported, Change in Color Hematologic/Lymphatic: Easy Bleeding Endocrine: No Symptoms Reported All Other Systems: Reviewed and Negative PE - Vital Signs Vitals: Temperature 98.6 F Pulse Rate [Left Dorsalis 72 Pedis] Pulse Rate 72 Respiratory Rate 18 Blood Pressure [Left Arm] 141/65 Blood Pressure [Right Arm] 107/56 Blood Pressure 153/66 O2 Sat by Pulse Oximetry 100 - General Limitations: No Limitations General Appearance: Alert, In Distress - Head Head Exam: Normal Inspection - Eyes Eye exam: Normal Appearance, Scleral Icterus, Conjunctival Injection. negative : PERRL, EOMI - ENT ENT Exam: Normal External Ear Exam External Ear Exam: Normal External Inspection TM/Canal Exam: Bilateral Normal Nose Exam: Normal Nose Exam Mouth Exam: Normal Inspection Throat Exam: Normal Inspection - Neck Neck Exam: Trachea Midline - Chest Chest Inspection: Symmetric Chest Wall Rise - Respiratory Respiratory Exam: Respiratory Distress Respiratory Exam: Bilateral Wheezing, Bilateral Rhonchi, Upper Wheezing, Upper Rhonchi, Lower Wheezing, Lower Rhonchi - Cardiovascular Cardiovascular Exam: Regular Rate, Normal Rhythm, Normal Heart Sounds - Abdominal Exam Abdominal Exam: Normal Bowel Sounds, Soft. negative: Tenderness - Extremities Extremities Exam: Tenderness - Back Back Exam: Paraspinal Tenderness - Neurologic Neurological Exam: Alert, Oriented X3 - Psychiatric Psychiatric Exam: Normal Affect, Normal Mood - Skin Skin Exam: Erythema, Other (EDEMA LOWER EXTREMITIES) MDM - Additional Information Additional Information Obtained From: Family - Differential Diagnosis Differential Diagnosis: CHF, PULMONARY EDEMA, PNEUMONIA, [place], Course - Treatment Treatment: SEE ORDERS. IV LASIX IN ED. GREATER THAN 1800CC URINE OUT PUT. FEELING BETTER. - Reevaluation 1st: Improved - Education/Counseling Education/Counseling: Patient, Family, Education Educated On: Treatment, Diagnosis, Needs for Follow Up ROR - Labs Reviewed Laboratory Results Reviewed?: Yes (LABS FROM [facility] DONE TODAY REVIEWED) Laboratory: Specimen Type Catherized urine 08/02/17 20:50 Urine Color Yellow (YELLOW) 08/02/17 20:50 Urine Appearance Clear (CLEAR) 08/02/17 20:50 Urine pH 7.0 (5.0 - 8.0) 08/02/17 20:50 Ur Specific [place] 1.005 (1.000-1.030) 08/02/17 20:50 Urine Protein Negative (NEGATIVE) 08/02/17 20:50 Urine Glucose (UA) Negative (NEGATIVE) 08/02/17 20:50 Urine Ketones Negative (NEGATIVE) 08/02/17 20:50 Urine Occult Blood Negative (NEGATIVE) 08/02/17 20:50 Urine Nitrite Negative (NEGATIVE) 08/02/17 20:50 Urine Bilirubin Negative (NEGATIVE) 08/02/17 20:50 Urine Urobilinogen Normal (NORMAL) 08/02/17 20:50 Ur Leukocyte Esterase Negative (NEGATIVE) 08/02/17 20:50 Urine RBC 0-2 /HPF (NEGATIVE) 08/02/17 20:50 Urine WBC 0-2 /HPF (NEGATIVE) 08/02/17 20:50 Ur Squamous Epith Cells Negative /HPF (NEGATIVE) 08/02/17 20:50 Urine Bacteria Negative /HPF (NEGATIVE) 08/02/17 20:50 Ur Culture Indicated? No/not indicated 08/02/17 20:50 - XRAY XRAY Interpreted by: Radiologist XRAY Findings: XRAY FROM [facility] REVIEWED, - Diagnosis Discharge Problem: Pulmonary congestion CHF (congestive heart failure) Qualifiers: Congestive heart failure type: combined Congestive heart failure chronicity: acute on chronic Qualified Code(s): I50.43 - Acute on chronic combined systolic (congestive) and diastolic (congestive) heart failure Dyspnea Qualifiers: Dyspnea type: shortness of breath Qualified Code(s): R06.02 - Shortness of breath Chronic pain Qualifiers: Chronic pain type: chronic pain syndrome Qualified Code(s): G89.4 - Chronic pain syndrome - Discharge Plan Disposition: HOME, SELF-CARE Condition: Stable - Follow ups/Referrals Follow ups/Referrals: NU SU [Primary Care Provider] - 3 days - Instructions Instructions: Shortness of Breath, [id number], Heart Failure, [id number] Additional Instructions: RETURN TO ED IF WORSE. CONTINUE WITH MEDS AT HOME.
[2017-08-02] MEDS ORDERED: LASIX IVP ONE ×2 (20:22→20:30)
[2017-08-02 20:58] LABS: BILIRUBIN,URINE NEGATIVE (NEGATIVE); BLOOD/HEMOGLOBIN,URINE NEGATIVE (NEGATIVE); GLUCOSE, URINE NEGATIVE (NEGATIVE); KETONES,URINE NEGATIVE (NEGATIVE); LEUKOCYTE ESTERASE ,URINE NEGATIVE (NEGATIVE); NITRITES,URINE NEGATIVE (NEGATIVE); PROTEIN,URINE NEGATIVE (NEGATIVE); UROBILINOGEN,URINE NORMAL (NORMAL)
[2017-08-02 21:02] LABS: APPEARANCE,URINE CLEAR (CLEAR); BACTERIA,URINE NEGATIVE /HPF (NEGATIVE); COLOR,URINE YELLOW (YELLOW); RBC,URINE 0-2 /HPF (NEGATIVE); SQUAMOUS EPITHELIAL CELL,UR NEGATIVE /HPF (NEGATIVE)
[2017-08-02] MEDS ORDERED: NORCO 10/325 TAB PO ONE (22:24)
[2017-08-02] MEDS ORDERED: NORCO 10/325 TAB ONE (22:43)
[2017-08-02 23:13] VITALS: BP 141/65
== END 2017-08-02 23:13 | disposition home or self-care (01) ==
LOC: ER 19:20
DX: R06.02 Shortness of breath (principal); I50.43 Acute on chronic combined systolic (congestive) and diastolic (congestive) heart failure; G89.4 Chronic pain syndrome; R09.89 Other specified symptoms and signs involving the circulatory and respiratory systems
CPT/HCPCS: 51701; 51702; 81001; 96365; 96374; 99283; 99285; J1940

== ENCOUNTER → 2017-08-23 | Outpatient (CLI) | payer BC, OTHER ==
[2017-08-02 23:13] VITALS: BP 141/65
[~2017-08-23] MED LIST: LEXISCAN IV ONE
== END ==
LOC: RAD 08:26
PROVIDERS: ATTEND Physician Assistant
DX: I25.10 Atherosclerotic heart disease of native coronary artery without angina pectoris (principal)
CPT/HCPCS: 78452; 93017; A4222; A9502; J2785

== ENCOUNTER → 2017-08-26 | Outpatient (CLI) | payer BC, OTHER ==
[2017-08-02 23:13] VITALS: BP 141/65
== END ==
LOC: RAD 13:27
PROVIDERS: ATTEND Physician Assistant
DX: I25.10 Atherosclerotic heart disease of native coronary artery without angina pectoris (principal)
CPT/HCPCS: 93306

== ENCOUNTER 2017-09-20 17:34 | Emergency (ER) | payer BC, OTHER ==
[2017-09-20 17:39] VITALS: BMI 47.6
--- NOTE | 2017-09-20 17:48 | DR.URINEF ---
HPI - Time Seen Time seen: 17:45 - PCP Primary Care Physician: YVONNE ZAMBRANO - HPI Comment HPI Comment: PATIENT HAVE CAD, CHF AND HYPERTENSION. BP IS LOW IN ED. - Complaint Chief Complaint Doctors Comments: CARDIAC STENT PLACE ON IN [facility]. NO URINE PASS PAST 3 DAYS. HAVING GENERALIZE ACHES AND WEAKNESS. Chief Complaint:: PT. C/O URINARY RETENTION. PT. HAS NOT VOIDED MUCH AT ALL X 3 DAYS. PT. HAS GAINED 9 LBS. IN 3 DAYS. PT. HAD CARDIAC STENTS PLACED LAST WEDNESDAY AT [facility]. - Reviewed Nurses Notes Reviewed: Yes - Source History Provided: Patient, Family Member - Mode of Arrival Mode of Arrival: Ambulatory - Timing Onset of Chief Complaint: 09/17/17 - Duration Duration: Constant Duration: Days Min/Hrs: Hours - Context Onset: Spontaneous Symptoms: Cough History of: None - Quality Pain is: Aching - Severity Pain: Moderate Inability to Void: Complete - Associated Signs and Symptoms Associated signs and symptoms: Back Pain PMH - PMH Past Medical History: Yes Past Medical History: Arthritis, CHF, COPD, Coronary Artery Disease, Diabetes, GERD, Gout, Hypertension, [place] Past Surgical History: Yes Surgical History: Angioplasty/Stents, , CABG/Valve Surgery, Cholecystectomy, Hysterectomy - Family History History of Family Medical Conditions: Yes Family Medical History: Heart Failure - Social History Does patient currently use any type of tobacco product: No Have you used tobacco products in the last 12 months: No Type of Tobacco Use: None Does any household member use tobacco: No Alcohol Use: None Do you use any recreational Drugs:: No Lives With: Spouse Lives Where: Home - infectious screening In the last 2 months have you had wt loss of >10#?: NO Have you had fever, night sweats or hemotysis?: No Have you traveled outside the country in the last 6 months?: No Isolation: Standard ROS - Review of Systems Constitutional: Weakness, Fatigue. negative: Chills, Fever Eyes: negative: Eye Pain, Discharge ENTM: negative: Ear Pain, Nose Discharge, Nose Congestion, Throat Pain Respiratoy: Non-Productive Cough, Short of Breath, Wheezing. negative: Hemoptysis Cardiovascular: Edema. negative: Chest Pain Gastrointestinal/Abdominal: Abdominal Pain Genitourinary: Other (ANURIA) Neurological: Headache, Weakness, Dizziness Musculoskeletal: Muscle Pain Integumentary: Change in Color Hematologic/Lymphatic: Easy Bleeding, Easy Bruising Endocrine: No Symptoms Reported All Other Systems: Reviewed and Negative PE - Vital Signs Vitals: Temperature 97.1 F Pulse Rate [Apical] 80 Pulse Rate 89 Respiratory Rate 20 Blood Pressure [Left Arm] 100/51 Blood Pressure [Right Arm] 107/56 Blood Pressure 78/46 O2 Sat by Pulse Oximetry 97 - General Limitations: No Limitations General Appearance: Alert - Head Head Exam: Normal Inspection - Eyes Eye exam: Normal Appearance - ENT ENT Exam: Normal Oropharynx - Neck Neck Exam: Trachea Midline - Chest Chest Inspection: Symmetric Chest Wall Rise - Respiratory Respiratory Exam: Normal Lung Sounds Bilat Respiratory Exam: Bilateral Rhonchi, Left Rhonchi, Right Rhonchi, Upper Rhonchi , Lower Rhonchi - Cardiovascular Cardiovascular Exam: Regular Rate, Normal Rhythm, Normal Heart Sounds - Abdominal Exam Abdominal Exam: Normal Bowel Sounds, Soft. negative: Tenderness - Rectal Rectal Exam: Deferred - Genitourinary External Exam: Female: Deferred : Speculum Exam (Female): Deferred : Bimanual Exam (female): Deferred - Extremities Extremities Exam: Edema (TRACE EDEMA) - Back Back Exam: Paraspinal Tenderness (LOWER BACK) - Neurologic Neurological Exam: Alert, Oriented X3 - Psychiatric Psychiatric Exam: Anxious - Skin Skin Exam: Erythema MDM - Additional Information Obtained Additional Information Obtained From: Family - Differential Diagnosis Differential Diagnosis: Pyelonephritis, Urinary retention, Urolithiasis, UTI Other Differential Diagnosis: [place], CHF, PNEUMONIA Course - Treatment Treatment: SEE ORDERS. DISCUSS PATIENT WITH . PATIENT TO TRANSFER TO [facility] FOR FURTHER MANAGEMENT. - Reevaluation 1st: Improved (BP IMPROVING ON IV FLUID.) - Consultation Consultation Comments: PATIENT ACCEPTED FOR TRANSFER TO [facility] BY DR. FRANCES, ED - Education/Counseling Education/Counseling: Patient, Family, Education Educated On: Diagnosis, Needs for Follow Up ROR - Labs Reviewed Laboratory Results Reviewed?: Yes Result Diagrams: 09/20/17 17:48 09/20/17 17:48 Laboratory: WBC 12.5 X10^3/uL (3.6-10.0) H 09/20/17 17:48 RBC 3.22 X10^6/uL (3.5-5.4) L 09/20/17 17:48 Hgb 10.9 g/dL (12.0-16.0) L 09/20/17 17:48 Hct 32.1 % (36.0-47.0) L 09/20/17 17:48 MCV 99.7 fL (80.0-100.0) 09/20/17 17:48 MCH 33.9 pg (27.0-34.0) 09/20/17 17:48 MCHC 34.0 g/dL (33.0-35.0) 09/20/17 17:48 RDW 15.2 % (11.6-16.5) 09/20/17 17:48 Plt Count 202 X10^3/uL (150.0-450.0) 09/20/17 17:48 MPV 8.3 fL (7.4-11.0) 09/20/17 17:48 Neut % (Auto) 71.9 % (42.0-75.0) 09/20/17 17:48 Lymph % (Auto) 16.1 % (21.0-51.0) L 09/20/17 17:48 [place] % (Auto) 10.8 % (0.0-13.0) 09/20/17 17:48 Eos % (Auto) 0.8 % (0.9-2.9) L 09/20/17 17:48 Baso % (Auto) 0.4 % (0.2-1.0) 09/20/17 17:48 Neut # (Auto) 9.0 x10^3/uL (2.2-4.8) H 09/20/17 17:48 Lymph # (Auto) 2.0 X10^3/uL (1.3-2.9) 09/20/17 17:48 [place] # (Auto) 1.3 x10^3/uL (0.3-0.8) H 09/20/17 17:48 Eos # (Auto) 0.1 x10^3/uL (0.0-0.2) 09/20/17 17:48 Baso # (Auto) 0.0 X10^3/uL (0.0-0.1) 09/20/17 17:48 Absolute Nucleated RBC 0.1 /100WBC 09/20/17 17:48 Sodium 130 mmol/L (136-145) L 09/20/17 17:48 Corrected Sodium TNP 09/20/17 17:48 Potassium 4.1 mmol/L (3.5-5.1) 09/20/17 17:48 Chloride 90 mmol/L (98-107) L 09/20/17 17:48 Carbon Dioxide 17.2 mmol/L (21-32) L 09/20/17 17:48 BUN 90 mg/dL (7-18) H 09/20/17 17:48 Creatinine 6.46 mg/dL (0.55-1.02) H 09/20/17 17:48 Est GFR (MDRD) Af Amer 8 (>60) L 09/20/17 17:48 Est GFR (MDRD) Non-Af 7 (>60) L 09/20/17 17:48 Glucose 110 mg/dL (65-99) H 09/20/17 17:48 Calcium 7.7 mg/dL (8.5-10.1) L 09/20/17 17:48 Corrected Calcium 8.4 mg/dL (8.5-10.1) L 09/20/17 17:48 Total Bilirubin 0.50 mg/dL (0.2-1.0) 09/20/17 17:48 AST 144 Units/L (15-37) H 09/20/17 17:48 ALT 50 Units/L (12-78) 09/20/17 17:48 Alkaline Phosphatase 95 Units/L (46-116) 09/20/17 17:48 Creatine Kinase 3182 Units/L (26-192) H 09/20/17 17:48 CK-MB (CK-2) 38.4 ng/mL (0-4.0) H* 09/20/17 17:48 CK/CKMB % Calc 1.2 % (<4) 09/20/17 17:48 Troponin I 5.00 ng/mL (0-1.5) H* 09/20/17 17:48 Total Protein 8.0 g/dL (6.4-8.2) 09/20/17 17:48 Albumin 3.1 g/dL (3.4-5.0) L 09/20/17 17:48 Globulin 4.9 g/dL (2.5-4.5) H 09/20/17 17:48 Albumin/Globulin Ratio 0.6 Ratio (1.1-2.1) L 09/20/17 17:48 Specimen Type Catherized urine 09/20/17 18:02 Urine Color Yellow (YELLOW) 09/20/17 18:02 Urine Appearance Hazy (CLEAR) 09/20/17 18:02 Urine pH 5.0 (5.0 - 8.0) 09/20/17 18:02 Ur Specific [place] 1.015 (1.000-1.030) 09/20/17 18:02 Urine Protein 2+ (NEGATIVE) 09/20/17 18:02 Urine Glucose (UA) Negative (NEGATIVE) 09/20/17 18: Urine Ketones Negative (NEGATIVE) 09/20/17 18:02 Urine Occult Blood 1+ (NEGATIVE) 09/20/17 18:02 Urine Nitrite Negative (NEGATIVE) 09/20/17 18:02 Urine Bilirubin 2+ (NEGATIVE) 09/20/17 18:02 Urine Urobilinogen 1+ (NORMAL) 09/20/17 18:02 Ur Leukocyte Esterase 1+ (NEGATIVE) 09/20/17 18:02 Urine RBC 0-2 /HPF (NONE SEEN) 09/20/17 18:02 Urine WBC 0-2 /HPF (NONE SEEN) 09/20/17 18:02 Ur Squamous Epith Cells Numerous /HPF (NEGATIVE) 09/20/17 18:02 Urine Bacteria Trace /HPF (NEGATIVE) 09/20/17 18:02 Urine Mucus Few /HPF (NEGATIVE) 09/20/17 18:02 Ur Culture Indicated? No/not indicated 09/20/17 18:02 - XRAY XRAY Interpreted by: Radiologist XRAY Findings: REPORT DISCUSS WITH PATIENT - EKG Rhythm: NSR (EKG NOTED) - Diagnosis Discharge Problem: Elevated troponin, Generalized weakness Acute renal failure Qualifiers: Acute renal failure type: unspecified Qualified Code(s): N17.9 - Acute kidney failure, unspecified Hypotension Qualifiers: Hypotension type: unspecified hypotension type Qualified Code(s): I95.9 - Hypotension, unspecified - Discharge Plan [facility] Condition: Stable - Follow ups/Referrals Follow ups/Referrals: NU VICTORIA [Primary Care Provider] - 3 days - Instructions
[2017-09-20 18:09] LABS: BASOPHILS % (AUTO) 0.4 % (0.2-1.0); EOSINOPHILS # (AUTO) 0.1 x10^3/uL (0.0-0.2); EOSINOPHILS % (AUTO) 0.8 % (0.9-2.9); HEMATOCRIT 32.1 % (36.0-47.0); HEMOGLOBIN 10.9 g/dL (12.0-16.0); LYMPHOCYTES % (AUTO) 16.1 % (21.0-51.0); MEAN CORPUSCULAR HEMOGLOBIN 33.9 pg (27.0-34.0); MEAN CORPUSCULAR VOLUME 99.7 fL (80.0-100.0); MEAN PLATELET VOLUME 8.3 fL (7.4-11.0); MONOCYTES # (AUTO) 1.3 x10^3/uL (0.3-0.8); MONOCYTES % (AUTO) 10.8 % (0.0-13.0); NEUTROPHILS % (AUTO) 71.9 % (42.0-75.0); PLATELET COUNT 202 X10^3/uL (150.0-450.0); RED BLOOD COUNT 3.22 X10^6/uL (3.5-5.4); RED CELL DISTRIBUTION WIDTH 15.2 % (11.6-16.5)
[2017-09-20 18:11] LABS: WHITE BLOOD COUNT 12.5 X10^3/uL (3.6-10.0)
[2017-09-20 18:19] LABS: BILIRUBIN,URINE 2+ (NEGATIVE); BLOOD/HEMOGLOBIN,URINE 1+ (NEGATIVE); GLUCOSE, URINE NEGATIVE (NEGATIVE); KETONES,URINE NEGATIVE (NEGATIVE); LEUKOCYTE ESTERASE ,URINE 1+ (NEGATIVE); NITRITES,URINE NEGATIVE (NEGATIVE); PROTEIN,URINE 2+ (NEGATIVE); UROBILINOGEN,URINE 1+ (NORMAL)
[2017-09-20 18:21] LABS: APPEARANCE,URINE HAZY (CLEAR); COLOR,URINE YELLOW (YELLOW)
[2017-09-20 18:35] LABS: RBC,URINE 0-2 /HPF (NONE SEEN); SQUAMOUS EPITHELIAL CELL,UR NUMEROUS /HPF (NEGATIVE)
[2017-09-20 18:36] LABS: BACTERIA,URINE TRACE /HPF (NEGATIVE); MUCUS,URINE FEW /HPF (NEGATIVE)
--- NOTE | 2017-09-20 18:39 | RAD ---
Chest, AP portable Indication: Shortness of breath Comparison: 03/24/2017 Findings: Cardiac silhouette size is unchanged. There is stable positioning of the left subclavian ap proach Port-A-Cath. The lungs are grossly clear without overt edema, infiltrate, or large effusion. Impression: No acute chest process. Reported By:
[2017-09-20 18:46] LABS: ALANINE AMINOTRANSFERASE 50 Units/L (12-78); ALBUMIN 3.1 g/dL (3.4-5.0); ALKALINE PHOSPHATASE 95 Units/L (46-116); ASPARTATE AMINO TRANSFERASE 144 Units/L (15-37); BLOOD UREA NITROGEN 90 mg/dL (7-18); CALCIUM 7.7 mg/dL (8.5-10.1); CARBON DIOXIDE 17.2 mmol/L (21-32); CHLORIDE 90 mmol/L (98-107); COR CA(FOR HYPOALB) 8.4 mg/dL (8.5-10.1); CREATININE 6.46 mg/dL (0.55-1.02); SODIUM 130 mmol/L (136-145); eGFR BLACK RACES 8 (>60); eGFR NON BLACK RACES 7 (>60)
[2017-09-20 18:49] LABS: CREATINE KINASE MB 38.4 ng/mL (0-4.0)
[2017-09-20 18:50] LABS: CKMB % 1.2 % (<4); CREATINE KINASE 3182 Units/L (26-192)
[2017-09-20] MEDS ORDERED: NS 1000 ML 1,000 ML IV ONE (19:04)
[2017-09-20] MEDS ORDERED: NS 1000 ML 1,000 ML ONE (19:06)
[2017-09-20 20:31] VITALS: BP 100/51
== END 2017-09-20 20:38 | disposition short-term general hospital (02) ==
LOC: ER 17:45
DX: N17.9 Acute kidney failure, unspecified (principal); R79.89 Other specified abnormal findings of blood chemistry; R53.1 Weakness; I95.9 Hypotension, unspecified; R94.31 Abnormal electrocardiogram [ECG] [EKG]
CPT/HCPCS: 36415; 36591; 51702; 71045; 80053; 81001; 82550; 82553; 84484; 85025; 93005; 93010; 96365; 99285

== ENCOUNTER → 2017-10-13 | Outpatient (CLI) | payer BC, OTHER ==
[2017-09-20 20:31] VITALS: BP 100/51
[2017-10-13 16:12] LABS: BASOPHILS % (AUTO) 0.3 % (0.2-1.0); EOSINOPHILS # (AUTO) 0.2 x10^3/uL (0.0-0.2); EOSINOPHILS % (AUTO) 3.1 % (0.9-2.9); HEMATOCRIT 24.6 % (36.0-47.0); HEMOGLOBIN 8.5 g/dL (12.0-16.0); LYMPHOCYTES # (AUTO) 0.8 X10^3/uL (1.3-2.9); LYMPHOCYTES % (AUTO) 12.9 % (21.0-51.0); MEAN CORPUSCULAR HGB CONC 34.4 g/dL (33.0-35.0); MEAN CORPUSCULAR VOLUME 98.9 fL (80.0-100.0); MEAN PLATELET VOLUME 7.7 fL (7.4-11.0); MONOCYTES # (AUTO) 0.5 x10^3/uL (0.3-0.8); NEUTROPHILS # (AUTO) 4.4 x10^3/uL (2.2-4.8); NEUTROPHILS % (AUTO) 74.7 % (42.0-75.0); PLATELET COUNT 155 X10^3/uL (150.0-450.0); RED BLOOD COUNT 2.49 X10^6/uL (3.5-5.4); RED CELL DISTRIBUTION WIDTH 15.9 % (11.6-16.5); WHITE BLOOD COUNT 5.9 X10^3/uL (3.6-10.0)
[2017-10-13 16:18] LABS: ALANINE AMINOTRANSFERASE 28 Units/L (12-78); ALBUMIN 3.5 g/dL (3.4-5.0); ALKALINE PHOSPHATASE 125 Units/L (46-116); ASPARTATE AMINO TRANSFERASE 28 Units/L (15-37); BLOOD UREA NITROGEN 87 mg/dL (7-18); CALCIUM 8.3 mg/dL (8.5-10.1); CHLORIDE 93 mmol/L (98-107); COR NA(FOR HYPERGLY) 134 mmol/L (136-145); CREATININE 3.09 mg/dL (0.55-1.02); SODIUM 133 mmol/L (136-145); TOTAL PROTEIN 7.9 g/dL (6.4-8.2); eGFR BLACK RACES 20 (>60); eGFR NON BLACK RACES 16 (>60)
--- NOTE | 2017-10-13 16:22 | RAD ---
History: Shortness of breath Study: PA and lateral chest Comparison: September 20, 2017 Findings: There is an unchanged Port-A-Cath via the left subclavian vein. The heart size is prominent . The lungs are grossly clear. There are dorsal column stimulator wires overlying the lower thoracic spine. There is no pleural effusion. No significant bony abnormality is demonstrated. Impression: No acute cardiopulmonary disease demonstrated Reported By:
== END ==
LOC: LAB 15:45
PROVIDERS: ATTEND Nurse Practitioner Family
DX: D64.89 Other specified anemias (principal); R09.89 Other specified symptoms and signs involving the circulatory and respiratory systems
CPT/HCPCS: 36415; 71046; 80053; 85025

== ENCOUNTER 2018-03-08 21:00 | Inpatient (IN) ==
[2018-03-08 21:59] LABS: BASOPHILS % (AUTO) 0.7 % (0.2-1.0); EOSINOPHILS # (AUTO) 0.2 x10^3/uL (0.0-0.2); EOSINOPHILS % (AUTO) 4.3 % (0.9-2.9); HEMATOCRIT 27.7 % (36.0-47.0); HEMOGLOBIN 8.7 g/dL (12.0-16.0); LYMPHOCYTES # (AUTO) 1.3 X10^3/uL (1.3-2.9); LYMPHOCYTES % (AUTO) 27.7 % (21.0-51.0); MEAN CORPUSCULAR HEMOGLOBIN 30.7 pg (27.0-34.0); MEAN CORPUSCULAR HGB CONC 31.5 g/dL (33.0-35.0); MEAN CORPUSCULAR VOLUME 97.3 fL (80.0-100.0); MEAN PLATELET VOLUME 8.4 fL (7.4-11.0); MONOCYTES # (AUTO) 0.4 x10^3/uL (0.3-0.8); MONOCYTES % (AUTO) 9.6 % (0.0-13.0); NEUTROPHILS # (AUTO) 2.6 x10^3/uL (2.2-4.8); NEUTROPHILS % (AUTO) 57.7 % (42.0-75.0); PLATELET COUNT 162 X10^3/uL (150.0-450.0); RED BLOOD COUNT 2.85 X10^6/uL (3.5-5.4); RED CELL DISTRIBUTION WIDTH 18.1 % (11.6-16.5); WHITE BLOOD COUNT 4.6 X10^3/uL (3.6-10.0)
--- NOTE | 2018-03-08 22:02 | DR.GENAD ---
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 HAVE ADDED 10 LBS IN 5 DAYS. NO FEVER. HAVE SLIGHT MOIST COUGH. Complaint/Symptoms Chief Complaint Doctors Comments: INCREASING SOB TIMES SEVERAL DAYS. Chief Complaint:: STATES WENT AND SEEN JOSEPH VICTORIA YESTERDAY FOR CHECK UP AND WAS TOLD TO TAKE EXTRA LASIX BUT STATES FEELS MORE SOB TODAY AND SHAKY , STATES FELL ON RIGHT LEG TODAY "BAD LEG" Self Treatment fo Chief Complaint: LASIX AND REGULAR MEDS Nurses notes reviewed Nurses Notes Review: Yes Source History Provided: Patient and Significant Other Mode of Arrival Mode of Arrival: Wheelchair Timing Onset of Chief Complaint: 03/08/18 Came on: Gradually Duration Duration: Constant Duration: Days Severity Severity: Moderate Modifying Factors Worsens:: WALKING, EXERSION Improves:: REST Associated Signs and Symptoms Associated Signs and Symptoms: SOB, CHEST PAIN PMH PMH Past Medical History: Yes Past Medical History: Arthritis, CHF, COPD, Coronary Artery Disease, Diabetes, GERD, Gout, Hypertension and [place] Past Surgical History: Yes Surgical History: Angioplasty/Stents, , CABG/Valve Surgery, Cholecystectomy and Hysterectomy Family History History of Family Medical Conditions: Yes Family Medical History: Heart Failure Social History Does patient currently use any type of tobacco product: No Have you used tobacco products in the last 12 months: No Type of Tobacco Use: None Does any household member use tobacco: No Alcohol Use: None Do you use any recreational Drugs:: No Lives With: Spouse Lives Where: Home infectious screening In the last 2 months have you had wt loss of >10#?: NO Have you had fever, night sweats or hemotysis?: No Have you traveled outside the country in the last 6 months?: No Isolation: Standard ROS Review of Systems Constitutional: Weakness and Fatigue; negative Chills and Fever Eyes: No Symptoms Reported ENTM: No Symptoms Reported Respiratoy: Non-Productive Cough, Orthopnea, Short of Breath and Wheezing Cardiovascular: Chest Pain and Edema Gastrointestinal/Abdominal: No Symptoms Reported Genitourinary: Other (INCREASE URINE OUTPUT.) Neurological: Headache, Tremors, Weakness and Dizziness Musculoskeletal: Back Pain and Muscle Pain Integumentary: No Symptoms Reported Hematologic/Lymphatic: Easy Bleeding and Easy Bruising Endocrine: No Symptoms Reported and Increased Urine (ON LASIX.) Psychiatric: No Symptoms Reported All Other Systems: Reviewed and Negative PE Vital Signs Vitals: Temperature 97.7 F Pulse Rate [Right] 68 Pulse Rate 77 Respiratory Rate 16 Blood Pressure [Left Arm] 135/63 Blood Pressure [Right Arm] 107/56 Blood Pressure 156/77 O2 Sat by Pulse Oximetry 100 General Limitations: No Limitations General Appearance: Alert and In Distress Eyes Eye exam: Normal Appearance, PERRL and EOMI; negative Scleral Icterus and Conjunctival Injection ENT ENT Exam: Normal Exam, Normal Oropharynx, Normal External Ear Exam and TM's Normal Bilaterally External Ear Exam: Normal External Inspection TM/Canal Exam: Bilateral: Normal Nose Exam: Normal Nose Exam Mouth Exam: Normal Inspection Throat Exam: Normal Inspection Neck Neck Exam: Normal Inspection and Trachea Midline Chest Chest Inspection: Normal Inspection and Symmetric Chest Wall Rise Respiratory Respiratory Exam: Normal Lung Sounds Bilat, Chest Wall Tenderness and Prolonged Expiratory Phase Respiratory Exam: Bilateral: Wheezing and Bilateral: Rhonchi, Upper: Wheezing and Lower: Wheezing and Lower: Rhonchi Cardiovascular Cardiovascular Exam: Regular Rate, Normal Rhythm and +S3 Abdominal Exam Abdominal Exam: Normal Inspection, Normal Bowel Sounds, Soft and Tenderness Abdominal Tenderness: RLQ, LLQ, Suprapubic and Mild Extremities Extremities Exam: Edema Back Back Exam: Paraspinal Tenderness Neurologic Neurological Exam: Alert, Oriented X3 and Normal Gait Psychiatric Psychiatric Exam: Normal Affect, Normal Mood and Anxious Skin Skin Exam: Erythema and Other (EDEMA ONE PLUS LOWER EXTREMITIES,) MDM Additional Information Additional Information Obtained From: Family Differential Diagnosis Differential Diagnosis: CHF, RESP DISTRESS, PNEUMOTHORAX COURSE Treatment Treatment: SEE ORDERS. Consultation Consultation Comments: DISCUSS PATIENT WITH DR. MARTINS. HE WILL ADMIT PATIENT. Education/Counseling Education/Counseling: Patient, Family and Education Educated On: Diagnosis ROR Labs Reviewed Laboratory Results Reviewed?: Yes Result Diagrams: 03/08/18 21:50 03/08/18 21:50 Laboratory: WBC 4.6 X10^3/uL (3.6-10.0) 03/08/18 21:50 RBC 2.85 X10^6/uL (3.5-5.4) L 03/08/18 21:50 Hgb 8.7 g/dL (12.0-16.0) L 03/08/18 21:50 Hct 27.7 % (36.0-47.0) L 03/08/18 21:50 MCV 97.3 fL (80.0-100.0) 03/08/18 21:50 MCH 30.7 pg (27.0-34.0) 03/08/18 21:50 MCHC 31.5 g/dL (33.0-35.0) L 03/08/18 21:50 RDW 18.1 % (11.6-16.5) H 03/08/18 21:50 Plt Count 162 X10^3/uL (150.0-450.0) 03/08/18 21:50 MPV 8.4 fL (7.4-11.0) 03/08/18 21:50 Neut % (Auto) 57.7 % (42.0-75.0) 03/08/18 21:50 Lymph % (Auto) 27.7 % (21.0-51.0) 03/08/18 21:50 Moffat % (Auto) 9.6 % (0.0-13.0) 03/08/18 21:50 Eos % (Auto) 4.3 % (0.9-2.9) H 03/08/18 21:50 Baso % (Auto) 0.7 % (0.2-1.0) 03/08/18 21:50 Neut # (Auto) 2.6 x10^3/uL (2.2-4.8) 03/08/18 21:50 Lymph # (Auto) 1.3 X10^3/uL (1.3-2.9) 03/08/18 21:50 Moffat # (Auto) 0.4 x10^3/uL (0.3-0.8) 03/08/18 21:50 Eos # (Auto) 0.2 x10^3/uL (0.0-0.2) 03/08/18 21:50 Baso # (Auto) 0.0 X10^3/uL (0.0-0.1) 03/08/18 21:50 Absolute Nucleated RBC 0.1 /100WBC 03/08/18 21:50 Sodium 144 mmol/L (136-145) 03/08/18 21:50 Corrected Sodium 146 mmol/L (136-145) H 03/08/18 21:50 Potassium 4.6 mmol/L (3.5-5.1) 03/08/18 21:50 Chloride 108 mmol/L (98-107) H 03/08/18 21:50 Carbon Dioxide 24.1 mmol/L (21-32) 03/08/18 21:50 BUN 41 mg/dL (7-18) H 03/08/18 21:50 Creatinine 2.38 mg/dL (0.55-1.02) H 03/08/18 21:50 Est GFR (MDRD) Af Amer 27 (>60) L 03/08/18 21:50 Est GFR (MDRD) Non-Af 22 (>60) L 03/08/18 21:50 Glucose 184 mg/dL (65-99) H 03/08/18 21:50 Calcium 8.3 mg/dL (8.5-10.1) L 03/08/18 21:50 Corrected Calcium TNP 03/08/18 21:50 Total Bilirubin 0.30 mg/dL (0.2-1.0) 03/08/18 21:50 AST 20 Units/L (15-37) 03/08/18 21:50 ALT 27 Units/L (12-78) 03/08/18 21:50 Alkaline Phosphatase 226 Units/L (46-116) H 03/08/18 21:50 Creatine Kinase 52 Units/L (26-192) 03/08/18 21:50 CK-MB (CK-2) 2.7 ng/mL (0-4.0) 03/08/18 21:50 CK/CKMB % Calc 5.2 % (<4) 03/08/18 21:50 Troponin I < 0.02 ng/mL (0-1.5) 03/08/18 21:50 B-Natriuretic Peptide 239 pg/mL (0-79) H 03/08/18 21:50 Total Protein 8.2 g/dL (6.4-8.2) 03/08/18 21:50 Albumin 3.4 g/dL (3.4-5.0) 03/08/18 21:50 Globulin 4.8 g/dL (2.5-4.5) H 03/08/18 21:50 Albumin/Globulin Ratio 0.7 Ratio (1.1-2.1) L 03/08/18 21:50 XRAY XRAY Interpreted by: Radiologist XRAY Findings: REPORT DISCUSS WITH PATIENT. EKG Rhythm: NSR ST: Nonsp Diagnosis Discharge Problem: CHF (congestive heart failure), Chest pain
[2018-03-08 22:12] LABS: ALANINE AMINOTRANSFERASE 27 Units/L (12-78); ALBUMIN 3.4 g/dL (3.4-5.0); ALKALINE PHOSPHATASE 226 Units/L (46-116); ASPARTATE AMINO TRANSFERASE 20 Units/L (15-37); BLOOD UREA NITROGEN 41 mg/dL (7-18); CALCIUM 8.3 mg/dL (8.5-10.1); CARBON DIOXIDE 24.1 mmol/L (21-32); CHLORIDE 108 mmol/L (98-107); COR NA(FOR HYPERGLY) 146 mmol/L (136-145); CREATININE 2.38 mg/dL (0.55-1.02); SODIUM 144 mmol/L (136-145); TOTAL PROTEIN 8.2 g/dL (6.4-8.2); eGFR NON BLACK RACES 22 (>60)
--- NOTE | 2018-03-08 22:15 | RAD ---
AP chest. Indication: Shortness breath Comparison: 10/13/2017 Findings: There is no change in cardiomegaly with pulmonary vascular congestion. There is no definite pulmonary interstitial edema or focal airspace opacity. No pleural effusion or pneumothorax. Stable positioning of left chest wall MediPort with its tip terminating within the lower SVC. No acute osseo us abnormality. Impression: Stable cardiomegaly and pulmonary vascular congestion without evidence of acute airspace disease or CHF. Reported By:
[2018-03-08 22:16] LABS: B-TYPE NATRIURETIC PEPTIDE 239 pg/mL (0-79)
[2018-03-08] MEDS ORDERED: LASIX IVP ONE ×2 (22:44→22:45)
[2018-03-08 23:53] LABS: CKMB % 5.2 % (<4); CREATINE KINASE 52 Units/L (26-192); CREATINE KINASE MB 2.7 ng/mL (0-4.0); TROPONIN I < 0.02 ng/mL (0-1.5)
[2018-03-09 05:10] LABS: BASOPHILS % (AUTO) 0.5 % (0.2-1.0); EOSINOPHILS # (AUTO) 0.2 x10^3/uL (0.0-0.2); EOSINOPHILS % (AUTO) 4.2 % (0.9-2.9); HEMATOCRIT 24.6 % (36.0-47.0); HEMOGLOBIN 7.8 g/dL (12.0-16.0); LYMPHOCYTES # (AUTO) 1.4 X10^3/uL (1.3-2.9); LYMPHOCYTES % (AUTO) 27.3 % (21.0-51.0); MEAN CORPUSCULAR HEMOGLOBIN 30.6 pg (27.0-34.0); MEAN CORPUSCULAR HGB CONC 31.8 g/dL (33.0-35.0); MEAN CORPUSCULAR VOLUME 96.2 fL (80.0-100.0); MEAN PLATELET VOLUME 8.4 fL (7.4-11.0); MONOCYTES # (AUTO) 0.5 x10^3/uL (0.3-0.8); MONOCYTES % (AUTO) 9.9 % (0.0-13.0); NEUTROPHILS # (AUTO) 2.9 x10^3/uL (2.2-4.8); NEUTROPHILS % (AUTO) 58.1 % (42.0-75.0); PLATELET COUNT 144 X10^3/uL (150.0-450.0); RED BLOOD COUNT 2.56 X10^6/uL (3.5-5.4); RED CELL DISTRIBUTION WIDTH 18.3 % (11.6-16.5)
[2018-03-09 05:20] LABS: ALBUMIN 3.2 g/dL (3.4-5.0); CALCIUM 8.2 mg/dL (8.5-10.1); CHOL/HDL RATIO 3.7 (0.0-5.0); COR CA(FOR HYPOALB) 8.8 mg/dL (8.5-10.1); CREATININE 2.05 mg/dL (0.55-1.02); TOTAL PROTEIN 7.5 g/dL (6.4-8.2)
[2018-03-09 05:29] LABS: PLATELET MORPHOLOGY COMMENT NORMAL (NORMAL)
[2018-03-09 05:30] LABS: HYPOCHROMASIA SLIGHT
[2018-03-09] MEDS ORDERED: HumuLIN R SC PRN (09:00)
[2018-03-09] MEDS ORDERED: ARIPIPRAZOLE 5 MG PO SCH (09:00)
[2018-03-09 09:13] LABS: ABG ALLEN TEST POS; ABG BASE EXCESS -0.7 mmol/L (-2.0-2.0); ABG HCO3 26.2 mmol/L (22-26); FRACTIONATED INSPIRED OXYGEN 28
[2018-03-09] MEDS: CARAFATE ORAL SUSP PO SCH ×4 (09:44→20:37)
[2018-03-09] MEDS: ABILIFY PO SCH (09:44)
[2018-03-09 17:29] LABS: CKMB % 4.8 % (<4); CREATINE KINASE 31 Units/L (26-192); CREATINE KINASE MB 1.5 ng/mL (0-4.0); TROPONIN I < 0.02 ng/mL (0-1.5)
[2018-03-09] MEDS ORDERED: SNACK - Diabetic Appropriate PO SCH (20:00)
[2018-03-09] MEDS ORDERED: RESTORIL CAP 30 MG PO PRN (20:45)
[2018-03-09] MEDS: NORCO 10/325 TAB PO PRN (20:51)
[2018-03-09] MEDS ORDERED: LIPITOR TAB 40 MG PO SCH (21:00)
[2018-03-09] MEDS: XOPENEX 1.25 MG/3 ML NEBULE NEB SCH (21:14)
[2018-03-09 23:06] LABS: CREATINE KINASE 30 Units/L (26-192); CREATINE KINASE MB 1.2 ng/mL (0-4.0); TROPONIN I < 0.02 ng/mL (0-1.5)
[2018-03-10] MEDS ORDERED: ZOFRAN INJ 4 MG VIAL IVP PRN (01:05)
[2018-03-10 04:11] VITALS: BMI 42.3
[2018-03-10] MEDS: NORCO 10/325 TAB PO PRN (04:44)
[2018-03-10 05:31] LABS: BASOPHILS % (AUTO) 0.8 % (0.2-1.0); EOSINOPHILS # (AUTO) 0.2 x10^3/uL (0.0-0.2); EOSINOPHILS % (AUTO) 3.4 % (0.9-2.9); HEMATOCRIT 25.3 % (36.0-47.0); HEMOGLOBIN 8.1 g/dL (12.0-16.0); LYMPHOCYTES # (AUTO) 1.4 X10^3/uL (1.3-2.9); MEAN CORPUSCULAR HEMOGLOBIN 30.9 pg (27.0-34.0); MEAN CORPUSCULAR HGB CONC 32.2 g/dL (33.0-35.0); MEAN CORPUSCULAR VOLUME 96.1 fL (80.0-100.0); MEAN PLATELET VOLUME 8.3 fL (7.4-11.0); MONOCYTES # (AUTO) 0.4 x10^3/uL (0.3-0.8); MONOCYTES % (AUTO) 9.8 % (0.0-13.0); NEUTROPHILS # (AUTO) 2.4 x10^3/uL (2.2-4.8); PLATELET COUNT 137 X10^3/uL (150.0-450.0); RED BLOOD COUNT 2.63 X10^6/uL (3.5-5.4); RED CELL DISTRIBUTION WIDTH 18.2 % (11.6-16.5); WHITE BLOOD COUNT 4.5 X10^3/uL (3.6-10.0)
[2018-03-10 05:36] LABS: ALBUMIN 3.1 g/dL (3.4-5.0); CALCIUM 8.5 mg/dL (8.5-10.1); CARBON DIOXIDE 27.7 mmol/L (21-32); COR CA(FOR HYPOALB) 9.2 mg/dL (8.5-10.1); CREATININE 1.42 mg/dL (0.55-1.02); TOTAL PROTEIN 7.5 g/dL (6.4-8.2)
[2018-03-10 07:29] VITALS: BP 142/60
[2018-03-10] MEDS: CARAFATE ORAL SUSP PO SCH (08:34)
[2018-03-10] MEDS: ABILIFY PO SCH (08:34)
[2018-03-10] MEDS ORDERED: HEMOCYTE-PLUS PO SCH (09:00)
[2018-03-10] MEDS: XOPENEX 1.25 MG/3 ML NEBULE NEB SCH (09:05)
[2018-03-10] MEDS ORDERED: ZOFRAN TAB 4 MG SL PRN (09:54)
--- NOTE | 2018-03-10 10:02 | RAD ---
Chest, one view Indication: Shortness of breath Comparison: 03/08/2018 Findings: There is stable enlargement of the cardiac silhouette. There is persistent pulmonary vascul ar congestion without overt edema. No focal infiltrate or significant effusion is identified. Left ibrahim bclavian port catheter is stable/satisfactory position without pneumothorax. Impression: Stable cardiomegaly and pulmonary vascular congestion without overt edema or focal pneumonia. Reported By:
--- NOTE | 2018-03-10 13:44 | DR.H&P ---
H&P - History & Physical for Day of: H&P Date: 03/08/18 - Chief Complaint Chief Complaint: SOB - History of Present Illness History of Present Illness: 62 WF ER ADMISSION AFTER PRESENTING WITH CO SOB. PT HAS HX OF CRF, ANEMIA, COPD, CHF, OA, CAD, MO AND RLE WOUND. PT STATES SHE HAS HAD INCREASED SOB AND RECENTLY INCREASED HER PO LASIX. PT REPORTS LAST HEART CATH IN 08/2017 WITH STENT PLACEMENT AT [facility]. PT HAS WOUND TO RIGHT KNEE AND CURRENTLY RECEIVING WOUND CARE THERAPY. - Past Medical History Past Medical History: [place], Coronary Artery Disease, Hypertension, Diabetes, COPD , GERD, Arthritis, Gout, CHF Additional Medical History: Morbid Obesity, Hiatal Hernia, Hx TIA, Glaucoma, Fibromyalgia - Past Surgical History Surgical History: Angioplasty/Stents, CABG/Valve Surgery, Cholecystectomy, C- Section, Hysterectomy - Family History Family Medical History: Heart Failure - Social History Does patient currently use any type of tobacco product: No Have you used tobacco products in the last 12 months: No Type of Tobacco Use: None Does any household member use tobacco: No Alcohol Use: None Drug Use: None - Medications Home Medications: butorphanol Allergy (Verified 12/08/17 16:41) nalbuphine Allergy (Verified 12/08/17 16:41) Penicillins Allergy (Verified 12/08/17 16:41) Sulfa (Sulfonamide Antibiotics) [SULFA] Allergy (Verified 12/08/17 16:41) CONTINUE taking the following medications brimonidine-timolol [Combigan] 1 drp OPHTHALMIC (EYE) Q12H 03/09/18 [History] lactulose 20 g PO BID 03/09/18 [History] meclizine 25 mg PO TID 03/09/18 [History] metolazone 1 tab PO PRN PRN 03/09/18 [History] nitroglycerin [Nitrolingual] 0.4 mg TRANSLINGUAL Q5M PRN 03/09/18 [History] ondansetron 8 mg PO QD-BID PRN 03/09/18 [History] solifenacin [Vesicare] 5 mg PO QDAY 03/09/18 [History] sucralfate [Carafate] 10 ml PO QID 03/09/18 [History] tizanidine [Zanaflex] 4 mg PO TID PRN 03/09/18 [History] travoprost [Travatan Z] 1 drp OPHTHALMIC (EYE) DAILY 03/09/18 [History] - Review of Systems Constitutional: Weakness Eyes: No Symptoms Reported ENT: No Symptoms Reported Respiratory: Shortness of Breath, SOB with Excertion Cardiovascular: Edema. denies: Chest Pain Gastrointestinal: Nausea Genitourinary: No Symptoms Reported Musculoskeletal: Back Pain, Leg Pain Skin: Wound (RIGHT KNEE) Neurological: Weakness - Physical Exam Vital Signs: Temperature 98.6 F Pulse Rate [Left Brachial] 58 Pulse Rate [Right] 67 Pulse Rate 61 Respiratory Rate 18 Blood Pressure [Left Arm] 142/60 Blood Pressure [Right Arm] 107/56 Blood Pressure 156/77 O2 Sat by Pulse Oximetry 96 Oriented: Person Eyes: Normal Ear: Normal Nose: Normal Throat: Normal Respiratory: RLL Diminished, LLL Diminished Cardiovascular: Normal. negative: Edema : Normal Auscultation: Bowel Sounds: Normal Palpation: Normal Tenderness: Normal Skin: Wound Musculoskeletal: Right, Knee, Back:Lumbar, Tender Psychiatric: Depression Mood Description: Depressed Speech Pattern: Appropriate, Delayed - Assessment/Plan (1) Dyspnea Qualifiers: Dyspnea type: shortness of breath Qualified Code(s): R06.02 - Shortness of breath; R06.00 - Dyspnea, unspecified; R06.01 - Orthopnea Status: Acute Plan: ADMIT, SERIAL CE, EKG'S, SUPPLEMENTAL O2. GENTLE HYDRATION, ANEMIA PANEL. BS CONTROL SSI. BP AND CARDIAC MONITORING. VERIFY HOME MEDS, WOUND CARE PRN TO RIGHT KNEE. ABG, STRICT I & OS (2) Acute renal failure Qualifiers: Acute renal failure type: unspecified Qualified Code(s): N17.9 - Acute kidney failure, unspecified Status: Acute (3) CKD (chronic kidney disease) Status: Chronic (4) Coronary arteriosclerosis Status: Chronic (5) Diabetes mellitus, type II Status: Chronic (6) GERD (gastroesophageal reflux disease) Status: Chronic - Allergies Allergies/Adverse Reactions: Allergies Allergy/AdvReac Type Severity Reaction Status Date / Time butorphanol Allergy Verified 12/08/17 16:41 nalbuphine Allergy Verified 12/08/17 16:41 Penicillins Allergy Verified 12/08/17 16:41 Sulfa (Sulfonamide Allergy Verified 12/08/17 16:41 Antibiotics) [SULFA]
--- NOTE | 2018-03-11 15:30 | PCM.PROG ---
Progress Note - Progress Note for Day of Date of Exam: 03/09/18 - Subjective Subjective: 62 WF ER ADMISSION WITH CO SOB. PT WAS ANEMIC ON ADMISSION, PT REPORTS SHE IS UNDER THE CARE OF DR ELENA FOR CRF, REPORTS CANNOT TOLERATE PO IRON SUPPLEMENT. PT HAD SERIAL CE AND EKG WITHOUT FINDING FOR AMI. PT HAS NO EFFUSION ON CXR. PT HAS CO EXERTIONAL SOB, NO RESP DISTRESS AT REST THIS AM. PT REPORTS IMPROVING STRENGTH, DENIES CP. - Past Medical Family Social History Past Med/Fam/Surg Hx: No changes since H&P Allergies: Allergies butorphanol Allergy (Verified 12/08/17 16:41) nalbuphine Allergy (Verified 12/08/17 16:41) Penicillins Allergy (Verified 12/08/17 16:41) Sulfa (Sulfonamide Antibiotics) [SULFA] Allergy (Verified 12/08/17 16:41) - Review of Systems ROS: No change since H&P - Vital Signs and I&O's Vital Signs: Temperature 98.6 F Pulse Rate [Left Brachial] 58 Pulse Rate [Right] 67 Pulse Rate 61 Respiratory Rate 18 Blood Pressure [Left Arm] 142/60 Blood Pressure [Right Arm] 107/56 Blood Pressure 156/77 O2 Sat by Pulse Oximetry 96 Intake and Output: Intake & Output 03/09/18 03/10/18 03/11/18 03/12/18 11:59 11:59 11:59 11:59 Intake Total 180 / 180 3160 / 3160 Output Total 1400 / 1400 2400 / 2400 Balance -1220 / -1220 760 / 760 - Physical Exam Oriented: Person Eyes: Normal Ear: Normal Nose: Normal Throat: Normal Respiratory: Diminished Cardiovascular: Normal. negative: Edema : Normal Auscultation: Bowel Sounds: Normal Tenderness: Normal Skin: Wound Musculoskeletal: Right, Knee, Back:Lumbar, Tender Psychiatric: Depression Mood Description: Depressed Speech Pattern: Appropriate, Delayed - Laboratory and Diagnostics Result Diagrams: 03/10/18 04:34 03/10/18 04:34 Labs: Laboratory WBC 4.5 X10^3/uL (3.6-10.0) 03/10/18 04:34 RBC 2.63 X10^6/uL (3.5-5.4) L 03/10/18 04:34 Hgb 8.1 g/dL (12.0-16.0) L 03/10/18 04:34 Hct 25.3 % (36.0-47.0) L 03/10/18 04:34 MCV 96.1 fL (80.0-100.0) 03/10/18 04:34 MCH 30.9 pg (27.0-34.0) 03/10/18 04:34 MCHC 32.2 g/dL (33.0-35.0) L 03/10/18 04:34 RDW 18.2 % (11.6-16.5) H 03/10/18 04:34 Plt Count 137 X10^3/uL (150.0-450.0) L 03/10/18 04:34 Plt Count Comment Adequate (ADEQUATE) 03/09/18 04:23 MPV 8.3 fL (7.4-11.0) 03/10/18 04:34 Neut % (Auto) 54.0 % (42.0-75.0) 03/10/18 04:34 Lymph % (Auto) 32.0 % (21.0-51.0) 03/10/18 04:34 Eddy % (Auto) 9.8 % (0.0-13.0) 03/10/18 04:34 Eos % (Auto) 3.4 % (0.9-2.9) H 03/10/18 04:34 Baso % (Auto) 0.8 % (0.2-1.0) 03/10/18 04:34 Neut # (Auto) 2.4 x10^3/uL (2.2-4.8) 03/10/18 04:34 Lymph # (Auto) 1.4 X10^3/uL (1.3-2.9) 03/10/18 04:34 Eddy # (Auto) 0.4 x10^3/uL (0.3-0.8) 03/10/18 04:34 Eos # (Auto) 0.2 x10^3/uL (0.0-0.2) 03/10/18 04:34 Baso # (Auto) 0.0 X10^3/uL (0.0-0.1) 03/10/18 04:34 Absolute Nucleated RBC 0.2 /100WBC 03/10/18 04:34 Plt Morphology Comment Normal (NORMAL) 03/09/18 04:23 RBC Morphology Abnormal (NORMAL) A 03/09/18 04:23 Hypochromasia Slight A 03/09/18 04:23 Sample Site Lr 03/09/18 09:07 ABG pH 7.310 (7.35-7.45) L 03/09/18 09:07 ABG pCO2 52.0 mmHg (35.0-45.0) H* 03/09/18 09:07 ABG pO2 83.0 mmHg (80.0-100.0) 03/09/18 09:07 ABG HCO3 26.2 mmol/L (22-26) H 03/09/18 09:07 ABG O2 Saturation 95.0 % (90-100) 03/09/18 09:07 ABG Base Excess -0.7 mmol/L (-2.0-2.0) 03/09/18 09:07 Jose Francisco Test Pos 03/09/18 09:07 A-a Gradient 52.0 mmHg 03/09/18 09:07 FiO2 28 03/09/18 09:07 Blood Gas Comments Pt sunita well. cdn 03/09/18 09:07 Sodium 143 mmol/L (136-145) 03/10/18 04:34 Corrected Sodium 144 mmol/L (136-145) 03/10/18 04:34 Potassium 5.0 mmol/L (3.5-5.1) 03/10/18 04:34 Chloride 109 mmol/L (98-107) H 03/10/18 04:34 Carbon Dioxide 27.7 mmol/L (21-32) 03/10/18 04:34 BUN 34 mg/dL (7-18) H 03/10/18 04:34 Creatinine 1.42 mg/dL (0.55-1.02) H 03/10/18 04:34 Est GFR (MDRD) Af Amer 49 (>60) L 03/10/18 04:34 Est GFR (MDRD) Non-Af 40 (>60) L 03/10/18 04:34 Glucose 149 mg/dL (65-99) H 03/10/18 04:34 POC Glucose (mg/dL) 149 mg/dL (65-99) H 03/10/18 05:23 Calcium 8.5 mg/dL (8.5-10.1) 03/10/18 04:34 Corrected Calcium 9.2 mg/dL (8.5-10.1) 03/10/18 04:34 Iron 30 ug/dL (50-175) L 03/09/18 04:25 Transferrin 206 mg/dL (202-364) 03/09/18 04:25 Ferritin 144 ng/mL (8-252) 03/09/18 04:25 Total Bilirubin 0.30 mg/dL (0.2-1.0) 03/10/18 04:34 AST 18 Units/L (15-37) 03/10/18 04:34 ALT 23 Units/L (12-78) 03/10/18 04:34 Alkaline Phosphatase 196 Units/L (46-116) H 03/10/18 04:34 Creatine Kinase 30 Units/L (26-192) 03/09/18 22:34 CK-MB (CK-2) 1.2 ng/mL (0-4.0) 03/09/18 22:34 CK/CKMB % Calc 4.0 % (<4) 03/09/18 22:34 Troponin I < 0.02 ng/mL (0-1.5) 03/09/18 22:34 B-Natriuretic Peptide 239 pg/mL (0-79) H 03/08/18 21:50 Total Protein 7.5 g/dL (6.4-8.2) 03/10/18 04:34 Albumin 3.1 g/dL (3.4-5.0) L 03/10/18 04:34 Globulin 4.4 g/dL (2.5-4.5) 03/10/18 04:34 Albumin/Globulin Ratio 0.7 Ratio (1.1-2.1) L 03/10/18 04:34 Triglycerides 122 mg/dL (0-150) 03/09/18 04:23 Cholesterol 101 mg/dL (0-200) 03/09/18 04:23 LDL Cholesterol, Calc 50 mg/dL (0-100) 03/09/18 04:23 HDL Cholesterol 27 mg/dL (40-60) L 03/09/18 04:23 Cholesterol/HDL Ratio 3.7 (0.0-5.0) 03/09/18 04:23 Vitamin B12 384 pg/mL (193-986) 03/09/18 04:25 Folate 8.5 ng/mL (>8.6) L 03/09/18 04:25 - Plan (1) Dyspnea Status: Acute Qualifiers: Dyspnea type: shortness of breath Qualified Code(s): R06.02 - Shortness of breath; R06.00 - Dyspnea, unspecified; R06.01 - Orthopnea Plan: SERIAL CE, EKG'S W/O ACUTE CHANGES. SUPPLEMENTAL O2. GENTLE HYDRATION, ANEMIA PANEL OBTAINED, IRON REPLACEMENT. BS CONTROL SSI. BP AND CARDIAC MONITORING. WOUND CARE PRN TO RIGHT KNEE. ABG ON ADMISSION, STRICT I & OS (2) Acute renal failure Status: Acute Qualifiers: Acute renal failure type: unspecified Qualified Code(s): N17.9 - Acute kidney failure, unspecified (3) CKD (chronic kidney disease) Status: Chronic (4) Coronary arteriosclerosis Status: Chronic (5) Diabetes mellitus, type II Status: Chronic (6) GERD (gastroesophageal reflux disease) Status: Chronic
--- NOTE | 2018-03-11 15:42 | PCM.DCPLAN ---
Discharge Summary - Admission Date Date of Admission: 03/08/18 - Discharge Date Discharge Date: 03/10/18 - Admission Diagnoses (1) Dyspnea Status: Acute (2) Acute renal failure Status: Acute (3) CKD (chronic kidney disease) Status: Chronic (4) Coronary arteriosclerosis Status: Chronic (5) Diabetes mellitus, type II Status: Chronic (6) GERD (gastroesophageal reflux disease) Status: Chronic - Discharge Diagnoses Discharge Diagnosis: SAME ADMISSION - Discharge Medications Discharge Medications: Home Medication List brimonidine-timolol [Combigan] 1 drp OPHTHALMIC (EYE) Q12H 03/09/18 [History] lactulose 20 g PO BID 03/09/18 [History] meclizine 25 mg PO TID 03/09/18 [History] metolazone 1 tab PO PRN PRN 03/09/18 [History] nitroglycerin [Nitrolingual] 0.4 mg TRANSLINGUAL Q5M PRN 03/09/18 [History] ondansetron 8 mg PO QD-BID PRN 03/09/18 [History] solifenacin [Vesicare] 5 mg PO QDAY 03/09/18 [History] sucralfate [Carafate] 10 ml PO QID 03/09/18 [History] tizanidine [Zanaflex] 4 mg PO TID PRN 03/09/18 [History] travoprost [Travatan Z] 1 drp OPHTHALMIC (EYE) DAILY 03/09/18 [History] Prescriptions: - Hospital Course Vital Signs: Temperature 98.6 F Pulse Rate [Left Brachial] 58 Pulse Rate [Right] 67 Pulse Rate 61 Respiratory Rate 18 Blood Pressure [Left Arm] 142/60 Blood Pressure [Right Arm] 107/56 Blood Pressure 156/77 O2 Sat by Pulse Oximetry 96 Latest Lab Results: Laboratory Last Values WBC 4.5 X10^3/uL (3.6-10.0) 03/10/18 04:34 RBC 2.63 X10^6/uL (3.5-5.4) L 03/10/18 04:34 Hgb 8.1 g/dL (12.0-16.0) L 03/10/18 04:34 Hct 25.3 % (36.0-47.0) L 03/10/18 04:34 MCV 96.1 fL (80.0-100.0) 03/10/18 04:34 MCH 30.9 pg (27.0-34.0) 03/10/18 04:34 MCHC 32.2 g/dL (33.0-35.0) L 03/10/18 04:34 RDW 18.2 % (11.6-16.5) H 03/10/18 04:34 Plt Count 137 X10^3/uL (150.0-450.0) L 03/10/18 04:34 Plt Count Comment Adequate (ADEQUATE) 03/09/18 04:23 MPV 8.3 fL (7.4-11.0) 03/10/18 04:34 Neut % (Auto) 54.0 % (42.0-75.0) 03/10/18 04:34 Lymph % (Auto) 32.0 % (21.0-51.0) 03/10/18 04:34 [place] % (Auto) 9.8 % (0.0-13.0) 03/10/18 04:34 Eos % (Auto) 3.4 % (0.9-2.9) H 03/10/18 04:34 Baso % (Auto) 0.8 % (0.2-1.0) 03/10/18 04:34 Neut # (Auto) 2.4 x10^3/uL (2.2-4.8) 03/10/18 04:34 Lymph # (Auto) 1.4 X10^3/uL (1.3-2.9) 03/10/18 04:34 [place] # (Auto) 0.4 x10^3/uL (0.3-0.8) 03/10/18 04:34 Eos # (Auto) 0.2 x10^3/uL (0.0-0.2) 03/10/18 04:34 Baso # (Auto) 0.0 X10^3/uL (0.0-0.1) 03/10/18 04:34 Absolute Nucleated RBC 0.2 /100WBC 03/10/18 04:34 Plt Morphology Comment Normal (NORMAL) 03/09/18 04:23 RBC Morphology Abnormal (NORMAL) A 03/09/18 04:23 Hypochromasia Slight A 03/09/18 04:23 Sample Site Lr 03/09/18 09:07 ABG pH 7.310 (7.35-7.45) L 03/09/18 09:07 ABG pCO2 52.0 mmHg (35.0-45.0) H* 03/09/18 09:07 ABG pO2 83.0 mmHg (80.0-100.0) 03/09/18 09:07 ABG HCO3 26.2 mmol/L (22-26) H 03/09/18 09:07 ABG O2 Saturation 95.0 % (90-100) 03/09/18 09:07 ABG Base Excess -0.7 mmol/L (-2.0-2.0) 03/09/18 09:07 Jose Francisco Test Pos 03/09/18 09:07 A-a Gradient 52.0 mmHg 03/09/18 09:07 FiO2 28 03/09/18 09:07 Blood Gas Comments Pt sunita well. cdn 03/09/18 09:07 Sodium 143 mmol/L (136-145) 03/10/18 04:34 Corrected Sodium 144 mmol/L (136-145) 03/10/18 04:34 Potassium 5.0 mmol/L (3.5-5.1) 03/10/18 04:34 Chloride 109 mmol/L (98-107) H 03/10/18 04:34 Carbon Dioxide 27.7 mmol/L (21-32) 03/10/18 04:34 BUN 34 mg/dL (7-18) H 03/10/18 04:34 Creatinine 1.42 mg/dL (0.55-1.02) H 03/10/18 04:34 Est GFR (MDRD) Af Amer 49 (>60) L 03/10/18 04:34 Est GFR (MDRD) Non-Af 40 (>60) L 03/10/18 04:34 Glucose 149 mg/dL (65-99) H 03/10/18 04:34 POC Glucose (mg/dL) 149 mg/dL (65-99) H 03/10/18 05:23 Calcium 8.5 mg/dL (8.5-10.1) 03/10/18 04:34 Corrected Calcium 9.2 mg/dL (8.5-10.1) 03/10/18 04:34 Iron 30 ug/dL (50-175) L 03/09/18 04:25 Transferrin 206 mg/dL (202-364) 03/09/18 04:25 Ferritin 144 ng/mL (8-252) 03/09/18 04:25 Total Bilirubin 0.30 mg/dL (0.2-1.0) 03/10/18 04:34 AST 18 Units/L (15-37) 03/10/18 04:34 ALT 23 Units/L (12-78) 03/10/18 04:34 Alkaline Phosphatase 196 Units/L (46-116) H 03/10/18 04:34 Creatine Kinase 30 Units/L (26-192) 03/09/18 22:34 CK-MB (CK-2) 1.2 ng/mL (0-4.0) 03/09/18 22:34 CK/CKMB % Calc 4.0 % (<4) 03/09/18 22:34 Troponin I < 0.02 ng/mL (0-1.5) 03/09/18 22:34 B-Natriuretic Peptide 239 pg/mL (0-79) H 03/08/18 21:50 Total Protein 7.5 g/dL (6.4-8.2) 03/10/18 04:34 Albumin 3.1 g/dL (3.4-5.0) L 03/10/18 04:34 Globulin 4.4 g/dL (2.5-4.5) 03/10/18 04:34 Albumin/Globulin Ratio 0.7 Ratio (1.1-2.1) L 03/10/18 04:34 Triglycerides 122 mg/dL (0-150) 03/09/18 04:23 Cholesterol 101 mg/dL (0-200) 03/09/18 04:23 LDL Cholesterol, Calc 50 mg/dL (0-100) 03/09/18 04:23 HDL Cholesterol 27 mg/dL (40-60) L 03/09/18 04:23 Cholesterol/HDL Ratio 3.7 (0.0-5.0) 03/09/18 04:23 Vitamin B12 384 pg/mL (193-986) 03/09/18 04:25 Folate 8.5 ng/mL (>8.6) L 03/09/18 04:25 Hospital Course: Mrs. Beltran is a 62-year-old female presentinf shortness of breath. Patient states she has a and was recently told to increase her Lasix for icnreased sob. pt has pmh of CHF and had heart cath with stent placement in august 2017. pt denies any chest pain, co sob worse on exertion. pt had crf and hx of anemia and under the care of dr colón in [place]. pt reports she has not been taking iron replacement. pt admitted for serial ce and ekgs r/o ami, assessment of sob. Pt also has chronic wound to right knee and currently seeing dr watts for wound care and kendra. pt had cxr with effusions. pt was treated for acute on chronic renal insufficiency with genlte hydration, pt encouraged to increase po hydration when taking diuretics. pt had improved renal function with gentle hdyration. pt has anemia panel with confirmed iron deficiency. pt reports sob worse with ambulation, pt educated on how anemia can worsen sob. pt had daily labs and serial cxr. pt states she feels better and asking to go home, pt has wound care appt. pt set up for outpt iron iv infusion, rx for hemocyte plus given on d/c - Discharge Plan Disposition: HOME HEALTH SERVICE Condition: Stable - Follow ups/Referrals Follow ups/Referrals: ELHAM [facility] [STAFF PHYSICIAN] - NU VICTORIA [Primary Care Provider] - 03/17/18 11:30 am - Instructions Instructions: Chronic Obstructive Pulmonary Disease Exacerbation, [id number] , Diabetes Mellitus and Sick Day Management, Hypertension, [id number], Chronic Kidney Disease, Adult, [id number], Heart Failure, [id number] Additional Instructions: resume home meds continue to follow up with nephrology as scheduled increase po fluids continue wound care iron rich diet set up for outpt iron infusion bp monitoring Forms: Patient Portal
== END 2018-03-10 10:25 | disposition home health service (06) | DRG 204 ==
LOC: ER 21:05 → MED/SURG 23:57
PROVIDERS: ADMIT Internal Medicine; ATTEND Internal Medicine
DX: I25.10 Atherosclerotic heart disease of native coronary artery without angina pectoris; R60.0 Localized edema; R06.02 Shortness of breath; E11.65 Type 2 diabetes mellitus with hyperglycemia; K21.9 Gastro-esophageal reflux disease without esophagitis; J44.1 Chronic obstructive pulmonary disease with (acute) exacerbation; R29.6 Repeated falls; R48.8 Other symbolic dysfunctions; R94.31 Abnormal electrocardiogram [ECG] [EKG]
CPT/HCPCS: 36415; 36556; 36600; 51702; 71010; 71045; 80053; 80061; 82550; 82553; 82607; 82728; 82746; 82803; 83540; 83880; 84466; 84484; 85025; 92523; 93005; 93010; 94640; 94760; 96365; 96374; 99284; A4216; A4222; J0400; J1642; J1940; J2405

== ENCOUNTER 2018-04-12 11:20 | Observation (INO) ==
[2018-04-12] MEDS: PEPCID 20 MG IV PREMIX* 20 MG/50 ML BAG IV SCH ×2 (13:28→20:03)
[2018-04-12] MEDS: NS 1000 ML 1,000 ML IV SCH ×2 (13:28→22:30)
[2018-04-12] MEDS: PROTONIX INJ 40 MG VIAL IVP SCH ×2 (13:28→20:04)
[2018-04-12 13:35] LABS: ALANINE AMINOTRANSFERASE 37 Units/L (12-78); ALBUMIN 3.5 g/dL (3.4-5.0); ALKALINE PHOSPHATASE 162 Units/L (46-116); ASPARTATE AMINO TRANSFERASE 22 Units/L (15-37); BLOOD UREA NITROGEN 17 mg/dL (7-18); CALCIUM 8.7 mg/dL (8.5-10.1); CARBON DIOXIDE 21.3 mmol/L (21-32); CHLORIDE 105 mmol/L (98-107); COR NA(FOR HYPERGLY) 140 mmol/L (136-145); CREATININE 0.96 mg/dL (0.55-1.02); SODIUM 140 mmol/L (136-145); TOTAL PROTEIN 7.5 g/dL (6.4-8.2); eGFR NON BLACK RACES > 60 (>60)
[2018-04-12 13:43] LABS: BASOPHILS % (AUTO) 0.4 % (0.2-1.0); EOSINOPHILS % (AUTO) 0.8 % (0.9-2.9); HEMATOCRIT 32.5 % (36.0-47.0); HEMOGLOBIN 10.9 g/dL (12.0-16.0); LYMPHOCYTES % (AUTO) 22.2 % (21.0-51.0); MEAN CORPUSCULAR HGB CONC 33.6 g/dL (33.0-35.0); MEAN CORPUSCULAR VOLUME 92.4 fL (80.0-100.0); MEAN PLATELET VOLUME 7.6 fL (7.4-11.0); MONOCYTES # (AUTO) 0.6 x10^3/uL (0.3-0.8); MONOCYTES % (AUTO) 11.9 % (0.0-13.0); NEUTROPHILS % (AUTO) 64.7 % (42.0-75.0); PLATELET COUNT 184 X10^3/uL (150.0-450.0); RED BLOOD COUNT 3.51 X10^6/uL (3.5-5.4); RED CELL DISTRIBUTION WIDTH 17.7 % (11.6-16.5); WHITE BLOOD COUNT 4.6 X10^3/uL (3.6-10.0)
[2018-04-12] MEDS: ZOFRAN INJ 4 MG VIAL IVP PRN ×2 (15:15→22:31)
--- NOTE | 2018-04-12 17:30 | RAD ---
HISTORY: Abdominal pain Study: KUB Comparison: CT scan 06/18/2013 Findings: Scattered large and small bowel gas is present. There appears to be a small to moderate amount of ga s noted within the stomach. I see no definite evidence of bowel obstruction or pneumoperitoneum. Sma ll calcifications are present in the anatomic pelvis. These most likely are phleboliths. Distal ure teral calculi cannot be excluded. Clinical correlation is recommended. A neural stimulator is prese nt projected over the right upper abdominal quadrant. Mild lumbar spondylosis is noted. IMPRESSION: 1. Small to moderate amount of gas noted within the stomach. 2. I see no evidence of bowel obstruction or pneumoperitoneum. 3. Small calcifications are present in the anatomic pelvis. These most likely are phleboliths. Dist al ureteral calculi cannot be excluded. Clinical correlation is recommended. Reported By:
[2018-04-12 21:12] LABS: STOOL FOR WBC NEGATIVE (NEGATIVE)
[2018-04-12] MEDS ORDERED: RESTORIL CAP 15 MG PO PRN (22:11)
[2018-04-13] MEDS: ZOFRAN INJ 4 MG VIAL IVP PRN (02:32)
[2018-04-13] MEDS: NS 1000 ML 1,000 ML IV SCH (04:59)
[2018-04-13 06:21] LABS: BASOPHILS % (AUTO) 0.7 % (0.2-1.0); EOSINOPHILS # (AUTO) 0.2 x10^3/uL (0.0-0.2); EOSINOPHILS % (AUTO) 3.5 % (0.9-2.9); HEMATOCRIT 27.7 % (36.0-47.0); HEMOGLOBIN 9.5 g/dL (12.0-16.0); LYMPHOCYTES # (AUTO) 1.2 X10^3/uL (1.3-2.9); LYMPHOCYTES % (AUTO) 23.8 % (21.0-51.0); MEAN CORPUSCULAR HEMOGLOBIN 31.6 pg (27.0-34.0); MEAN CORPUSCULAR HGB CONC 34.3 g/dL (33.0-35.0); MEAN CORPUSCULAR VOLUME 92.2 fL (80.0-100.0); MEAN PLATELET VOLUME 7.8 fL (7.4-11.0); MONOCYTES # (AUTO) 0.4 x10^3/uL (0.3-0.8); MONOCYTES % (AUTO) 8.9 % (0.0-13.0); NEUTROPHILS # (AUTO) 3.1 x10^3/uL (2.2-4.8); NEUTROPHILS % (AUTO) 63.1 % (42.0-75.0); PLATELET COUNT 165 X10^3/uL (150.0-450.0); RED CELL DISTRIBUTION WIDTH 17.8 % (11.6-16.5); WHITE BLOOD COUNT 4.9 X10^3/uL (3.6-10.0)
[2018-04-13 06:44] LABS: ALANINE AMINOTRANSFERASE 29 Units/L (12-78); ALKALINE PHOSPHATASE 141 Units/L (46-116); ASPARTATE AMINO TRANSFERASE 20 Units/L (15-37); BLOOD UREA NITROGEN 14 mg/dL (7-18); CALCIUM 8.1 mg/dL (8.5-10.1); CARBON DIOXIDE 20.4 mmol/L (21-32); CHLORIDE 106 mmol/L (98-107); COR CA(FOR HYPOALB) 8.9 mg/dL (8.5-10.1); CREATININE 0.82 mg/dL (0.55-1.02); SODIUM 139 mmol/L (136-145); TOTAL PROTEIN 6.4 g/dL (6.4-8.2); eGFR NON BLACK RACES > 60 (>60)
[2018-04-13] MEDS ORDERED: K-DUR TAB 20 MEQ PO PRN (06:53)
[2018-04-13] MEDS ORDERED: POTASSIUM CHL 40 MEQ/NS 0.45% 500 ML IV PRN (06:53)
[2018-04-13] MEDS ORDERED: KLOR-CON PO PRN (06:53)
[2018-04-13] MEDS ORDERED: POTASSIUM CHL 60 MEQ/NS 0.45% 500 ML IV PRN (06:53)
[2018-04-13] MEDS ORDERED: K-RIDER 10 MEQ/NS 100 ML 10 MEQ/100 ML BAG IV PRN (06:53)
[2018-04-13] MEDS ORDERED: MICRO K EXTEN CAP 10 MEQ PO PRN (06:53)
[2018-04-13] MEDS ORDERED: POTASSIUM CHLORIDE LIQ 20 MEQ UDC PO PRN (06:53)
[2018-04-13 07:37] LABS: APPEARANCE,URINE CLEAR (CLEAR); BACTERIA,URINE TRACE /HPF (NEGATIVE); BILIRUBIN,URINE NEGATIVE (NEGATIVE); BLOOD/HEMOGLOBIN,URINE NEGATIVE (NEGATIVE); COLOR,URINE YELLOW (YELLOW); GLUCOSE, URINE NEGATIVE (NEGATIVE); KETONES,URINE NEGATIVE (NEGATIVE); LEUKOCYTE ESTERASE ,URINE 1+ (NEGATIVE); NITRITES,URINE NEGATIVE (NEGATIVE); PROTEIN,URINE 2+ (NEGATIVE); RBC,URINE 0-2 /HPF (NONE SEEN); SQUAMOUS EPITHELIAL CELL,UR MANY /HPF (NEGATIVE); UROBILINOGEN,URINE NORMAL (NORMAL)
[2018-04-13 08:27] VITALS: BMI 37.3
[2018-04-13] MEDS: PROTONIX INJ 40 MG VIAL IVP SCH (08:30)
[2018-04-13] MEDS: PEPCID 20 MG IV PREMIX* 20 MG/50 ML BAG IV SCH (08:30)
[2018-04-13 10:24] VITALS: BP 178/80
--- NOTE | 2018-04-13 11:02 | DR.UPDATE ---
H&P Update History and Physical Update: WAS SEEN IN THE OFFICE BY YVONNE RICK TODAY FOR PERSISTENT ABDOMINAL PAIN, NAUSEA, AND VOMITING. SHE WAS ADMITTED FOR FURTHER EVALUATION AND TREATMENT. A H&P WAS COMPLETED PRIOR TO ADMISSION. SHE WAS STARTED ON NORMAL SALINE AT 125ML/HR, PEPCID 20MG IV Q12H, AND PROTONIX 40MG IV BID. ON ADMISSION, WE OBTAINED A KUB, RESULTS PENDING. PATIENT HAS BEEN SEEN AND EXAMINED WITH NO CHANGES NOTED TO H&P. Changes noted: NO Yes with the following:
--- NOTE | 2018-05-31 22:22 | DR.CARTERD ---
- Discharge Summary for: Discharge Summary for Date of:: 04/13/18 - Admission Date Date of Admission: 04/12/18 - Admission Diagnoses Admission Diagnosis: (1) NAUSEA AND VOMITING (2) DIARRHEA - Discharge Date Discharge Date: 04/13/18 - Discharge Diagnoses Discharge Diagnosis: (1) NAUSEA AND VOMITING (2) DIARRHEA - Hospital Course Hospital Course: DAY ONE, WAS SEEN IN THE OFFICE BY YVONNE RICK TODAY FOR PERSISTENT ABDOMINAL PAIN, NAUSEA, AND VOMITING. SHE WAS ADMITTED FOR FURTHER EVALUATION AND TREATMENT. SHE WAS STARTED ON NORMAL SALINE AT 125ML/HR, PEPCID 20MG IV Q12H, AND PROTONIX 40MG IV BID. ON ADMISSION, WE OBTAINED A KUB, RESULTS PENDING. DAY TWO KUB RESULTS REVIEWED AND THEY REVEALED: Small to moderate amount of gas noted within the stomach. I see no evidence of bowel obstruction or pneumoperitoneum. Small calcifications are present in the anatomic pelvis. These most likely are phleboliths. Distal ureteral calculi cannot be excluded. Clinical correlation is recommended. LABS REPEATED. POTASSIUM WAS 3.3. WE SUPPLEMENTED PER POTASSIUM PROTOCOL. PATIENT VOICED ZEDRO COMPLAINTS OF NAUSEA, VOMITING, OR DIARRHEA THIS MORNING ON ROUNDS. ZERO SIGNS AND SYMPTOMS OF ACUTE DISTRESS NOTED DURING ROUNDS. VITAL SIGNS WERE STABLE. WE PLANNED FOR DISCHARGE. INSTRUCTIONS FOR MEDICATIONS AND FOLLOW UP WERE DISCUSSED WITH PATIENT AND FAMILY, BOTH VOICED UNDERSTANDING. PATIENT WAS DISCHARGED HOME IN STABLE CONDITION WITH FAMILY. - Discharge Medications Discharge Medications: Home Medication List dicyclomine 20 mg PO QID #30 cap 04/13/18 [Rx] Prescriptions: dicyclomine Jhoan Lu Ambulatory Orders Insulin Detemir [Levemir] 70 units SC 02/05/12 Isosorbide Mononitrate [Imdur] 30 mg PO DAILY 02/05/12 enalapril maleate 10 mg PO DAILY 02/05/12 insulin lispro [Humalog KwikPen Insulin] 20 units SC AC PRN 02/05/12 morphine [MS Contin] 60 mg PO BID 02/05/12 magnesium oxide 400 mg PO DAILY 02/14/13 temazepam 30 mg PO HS 02/15/13 duloxetine 60 tab PO DAILY 08/09/15 furosemide 40 tab PO BID PRN 08/09/15 atorvastatin 80 mg PO HS 08/02/17 metolazone 2.5 mg PO DAILY 08/02/17 aspirin [Adult Low Dose Aspirin] 81 mg PO DAILY 09/20/17 pantoprazole 40 mg PO DAILY 09/20/17 ticagrelor [Brilinta] 90 mg PO BID 09/20/17 brimonidine-timolol [Combigan] 1 drp OPHTHALMIC (EYE) Q12H 03/09/18 meclizine 25 mg PO TID PRN 03/09/18 nitroglycerin [Nitrolingual] 0.4 mg SUBLINGUAL Q5M PRN 03/09/18 ondansetron 8 mg PO QD-BID PRN 03/09/18 solifenacin [Vesicare] 5 mg PO QDAY 03/09/18 tizanidine [Zanaflex] 4 mg PO TID PRN 03/09/18 travoprost [Travatan Z] 1 drp OPHTHALMIC (EYE) DAILY 03/09/18 - Discharge Disposition Discharge Disposition: PATIENT TO FOLLOW UP WITH YVONNE ZAMBRANO IN HER OFFICE IN ONE WEEK.
== END 2018-04-13 12:00 | disposition home or self-care (01) ==
LOC: ICU
PROVIDERS: ADMIT Internal Medicine; ATTEND Internal Medicine
DX: R11.2 Nausea with vomiting, unspecified; R19.7 Diarrhea, unspecified; W18.39XA Other fall on same level, initial encounter; D64.89 Other specified anemias; R10.84 Generalized abdominal pain; Z79.899 Other long term (current) drug therapy
CPT/HCPCS: 36415; 74000; 74018; 80053; 81001; 83630; 83735; 85025; 96367; 96374; A4222; C9113; S0028; G0378; J1642; J2405; J7030